=== PATIENT | female | born 1960 | race Caucasian/White ===

== ENCOUNTER 2016-10-07 10:11 | Emergency (ER) | payer OTHER ==
[2016-10-07] MEDS ORDERED: IPRATROPIUM-ALBUTEROL 3 ML NEB INHALATION STA (11:21)
--- NOTE | 2016-10-07 11:23 | ED ---
General Adult HPI - General Chief complaint: Chest Pain Stated complaint: COUGHING, CHEST CONGESTION Time Seen by Provider: 10/07/16 11:18 Source: patient, RN notes reviewed Mode of arrival: ambulatory Limitations: no limitations - History of Present Illness Initial comments: 56 yo female presents to the emergency Department chief complaint of a dry cough the right percent chest pain. Patient states about 6 weeks ago she was diagnosed with bronchitis. Patient states that that got better but now for the last week or so she's had this dry cough and pain to the right upper lung. Patient states she has mild pain when she is not bringing the when she breathes her pain is worse. Patient states that night it is worse when she is laying down. Patient states that the shortness of breath like with bronchitis is not there there is mild shortness of breath. Patient states she hasn't had any lightheadedness or dizziness has been no fever chills. Patient states that she is a smoker. Patient states she was concerned due to the continued discomfort for the last week or so so she thought that she should be evaluated.Patient denies any recent fever, chills, back pain, abdominal pain, nausea vomiting, numbness or tingling, dysuria or hematuria, constipation or diarrhea, headaches or visual changes, or any other current symptoms. - Related Data Home Medications Medication Instructions Recorded Confirmed Omeprazole [PriLOSEC] 20 mg PO DAILY PRN 11/01/15 10/07/16 Calcium/Magnesium/Potassium 1 tab PO DAILY 10/07/16 10/07/16 Multivitamins, Thera Liquid 1 oz PO DAILY 10/07/16 10/07/16 [Theragran Liquid (formulary)] Vitamin B-12 Liquid 1 ml PO DAILY 10/07/16 10/07/16 Previous Rx's Medication Instructions Recorded Albuterol Inhaler [Ventolin Hfa 1 - 2 puff INHALATION Q4-6H PRN #1 10/07/16 Inhaler] inhaler Levofloxacin [Levaquin] 750 mg PO DAILY #5 tab 10/07/16 Allergies Allergy/AdvReac Type Severity Reaction Status Date / Time No Known Allergies Allergy Verified 10/07/16 12:01 Review of Systems ROS Statement: Those systems with pertinent positive or pertinent negative responses have been documented in the HPI. ROS Other: All systems not noted in ROS Statement are negative. Past Medical History Past Medical History: GERD/Reflux Additional Past Medical History / Comment(s): VARICOSE VEINS, H PYLORI History of Any Multi-Drug Resistant Organisms: None Reported Additional Past Surgical History / Comment(s): VEIN STRIPPING RIGHT LEG, COLONOSCOPY, EGD Past Anesthesia/Blood Transfusion Reactions: No Reported Reaction Past Psychological History: No Psychological Hx Reported Smoking Status: Current every day smoker Past Alcohol Use History: Rare Additional Past Alcohol Use History / Comment(s): STARTED SMOKING AT AGE 17- SMOKES 1/2 PPD OR LESS Past Drug Use History: None Reported - Past Family History Mother Family Medical History: Deep Vein Thrombosis (DVT) General Exam - General Exam Comments Initial Comments: General: The patient is awake and alert, in no distress, and does not appear acutely ill. Eye: Pupils are equal, round and reactive to light, extra-ocular movements are intact; there is normal conjunctiva bilaterally. No signs of icterus. Ears, nose, mouth and throat: There are moist mucous membranes and no oral lesions. Neck: The neck is supple, there is no tenderness. Cardiovascular: There is a regular rate and rhythm. No murmur, rub or gallop is appreciated. Mild tenderness patient of the right upper chest wall. Respiratory: Lungs are clear to auscultation, respirations are non-labored, breath sounds are equal. No wheezes, stridor, rales, or rhonchi. Gastrointestinal: Soft, non-distended, non-tender abdomen without masses or organomegaly noted. There is no rebound or guarding present. No CVA tenderness. Bowel sounds are unremarkable. Back: There is no tenderness to palpation in the midline. There is no obvious deformity. No rashes noted. Musculoskeletal: Normal ROM, no tenderness, There is no pedal edema. There is no calf tenderness or swelling. Sensation intact. Pulses equal bilaterally 2+. Neurological: CN II-XII intact, There are no obvious motor or sensory deficits. Coordination appears grossly intact. Speech is normal. Skin: Skin is warm and dry and no rashes or lesions are noted. Psychiatric: Cooperative, appropriate mood & affect, normal judgment. Limitations: no limitations Course Vital Signs 10/07/16 10/07/16 10/07/16 10:48 11:44 11:52 Temperature 98.3 F Pulse Rate 68 84 88 Respiratory 18 Rate Blood Pressure 116/67 O2 Sat by Pulse 97 Oximetry 10/07/16 12:27 Temperature 97.4 F L Pulse Rate 68 Respiratory 18 Rate Blood Pressure 98/54 O2 Sat by Pulse 100 Oximetry Medical Decision Making - Medical Decision Making 56-year-old female presents to the emergency department with a chief complaint of cough. At this time chest x-ray is suspicious for a pneumonia. This and lab work has no white count and otherwise is reviewed and negative. This time we will start patient on antibiotics for pneumonia. We discussed. We discussed all patient's questions. She stated that she understood and is in agreement plan. She'll be discharged. - Lab Data Result diagrams: 10/07/16 11:25 10/07/16 11:25 Lab Results 10/07/16 10/07/16 10/07/16 Range/Units 11:25 11:25 11:25 WBC 5.6 (3.8-10.6) k/uL RBC 4.02 (3.80-5.40) m/uL Hgb 12.4 (11.4-16.0) gm/dL Hct 38.4 (34.0-46.0) % MCV 95.4 (80.0-100.0) fL MCH 30.8 (25.0-35.0) pg MCHC 32.2 (31.0-37.0) g/dL RDW 13.3 (11.5-15.5) % Plt Count 330 (150-450) k/uL Neutrophils % 55 % Lymphocytes % 31 % Monocytes % 7 % Eosinophils % 3 % Basophils % 1 % Neutrophils # 3.1 (1.3-7.7) k/uL Lymphocytes # 1.8 (1.0-4.8) k/uL Monocytes # 0.4 (0-1.0) k/uL Eosinophils # 0.2 (0-0.7) k/uL Basophils # 0.0 (0-0.2) k/uL PT (9.0-12.0) sec INR (<1.1) APTT (22.0-30.0) sec D-Dimer (<0.60) mg/L FEU Sodium 142 (137-145) mmol/L Potassium 4.0 (3.5-5.1) mmol/L Chloride 106 (98-107) mmol/L Carbon Dioxide 28 (22-30) mmol/L Anion Gap 8 mmol/L BUN 19 H (7-17) mg/dL Creatinine 0.54 (0.52-1.04) mg/dL Est GFR (MDRD) Af Amer >60 (>60 ml/min/1.73 sqM) Est GFR (MDRD) Non-Af >60 (>60 ml/min/1.73 sqM) Glucose 87 (74-99) mg/dL Calcium 9.2 (8.4-10.2) mg/dL Magnesium 2.2 (1.6-2.3) mg/dL Total Bilirubin 0.8 (0.2-1.3) mg/dL AST 23 (14-36) U/L ALT 22 (9-52) U/L Alkaline Phosphatase 72 (38-126) U/L Total Creatine Kinase 76 (30-135) U/L CK-MB (CK-2) 1.1 (0.0-2.4) ng/mL CK-MB (CK-2) Rel Index 1.4 Troponin I <0.012 (0.000-0.034) ng/mL Total Protein 7.5 (6.3-8.2) g/dL Albumin 3.9 (3.5-5.0) g/dL 10/07/16 Range/Units 11:25 WBC (3.8-10.6) k/uL RBC (3.80-5.40) m/uL Hgb (11.4-16.0) gm/dL Hct (34.0-46.0) % MCV (80.0-100.0) fL MCH (25.0-35.0) pg MCHC (31.0-37.0) g/dL RDW (11.5-15.5) % Plt Count (150-450) k/uL Neutrophils % % Lymphocytes % % Monocytes % % Eosinophils % % Basophils % % Neutrophils # (1.3-7.7) k/uL Lymphocytes # (1.0-4.8) k/uL Monocytes # (0-1.0) k/uL Eosinophils # (0-0.7) k/uL Basophils # (0-0.2) k/uL PT 9.9 (9.0-12.0) sec INR 1.0 (<1.1) APTT 26.5 (22.0-30.0) sec D-Dimer 0.19 (<0.60) mg/L FEU Sodium (137-145) mmol/L Potassium (3.5-5.1) mmol/L Chloride (98-107) mmol/L Carbon Dioxide (22-30) mmol/L Anion Gap mmol/L BUN (7-17) mg/dL Creatinine (0.52-1.04) mg/dL Est GFR (MDRD) Af Amer (>60 ml/min/1.73 sqM) Est GFR (MDRD) Non-Af (>60 ml/min/1.73 sqM) Glucose (74-99) mg/dL Calcium (8.4-10.2) mg/dL Magnesium (1.6-2.3) mg/dL Total Bilirubin (0.2-1.3) mg/dL AST (14-36) U/L ALT (9-52) U/L Alkaline Phosphatase (38-126) U/L Total Creatine Kinase (30-135) U/L CK-MB (CK-2) (0.0-2.4) ng/mL CK-MB (CK-2) Rel Index Troponin I (0.000-0.034) ng/mL Total Protein (6.3-8.2) g/dL Albumin (3.5-5.0) g/dL - EKG Data -: EKG Interpreted by 10/07/16 11:24 Sinus bradycardia 55 bpm, normal axis, no atopy, no S-T depressions or elevations, - Radiology Data Radiology results: report reviewed, image reviewed Disposition Clinical Impression: Right upper lobe pneumonia Disposition: HOME SELF-CARE Condition: Stable Instructions: Pneumonia (ED) Additional Instructions: Please use medication as discussed. Please follow up with family doctor if symptoms have not improved over the next two days. Please return to the emergency room if your symptoms increase or worsen or for any other concerns. Prescriptions: Albuterol Inhaler [Ventolin Hfa Inhaler] 1 - 2 puff INHALATION Q4-6H PRN #1 inhaler PRN Reason: Cough Levofloxacin [Levaquin] 750 mg PO DAILY #5 tab Referrals: Caty Mijares MD [Primary Care Provider] - 1-2 days Time of Disposition: 12:43
--- NOTE | 2016-10-07 11:48 | XR ---
EXAMINATION TYPE: XR chest 2V DATE OF EXAM: 10/07/2016 11:43 AM COMPARISON: NONE TECHNIQUE: PA and lateral views submitted. HISTORY: Chest FINDINGS: There is an area of consolidation the right upper lobe and additional area of consolidation the lingu lar segment left upper lobe on the lateral view. Follow resolution to exclude neoplasm. No pleural effusion or pneumothorax. Hypertrophic and degenerative change of the spine. IMPRESSION: 1. Area of consolidation right upper lobe suspicious for pneumonia. Correlate clinically. Follow-up t o resolution to exclude underlying neoplasm. 2. Lateral view suggest increased density overlying the cardiac border likely within the lingular seg ment left upper lobe. Correlate for pneumonia.
[2016-10-07 11:53] LABS: Basophils % (A) 1 %; CH 30.7; CHCM 32.3; Eosinophils # (A) 0.2 k/uL (0-0.7); Eosinophils % (A) 3 %; HCT 38.4 % (34.0-46.0); HDW 2.42; HGB 12.4 gm/dL (11.4-16.0); Luc # (Auto) 0.19; Luc % (Auto) 3; Lymphocytes # (A) 1.8 k/uL (1.0-4.8); Lymphocytes % (A) 31 %; MCH 30.8 pg (25.0-35.0); MCHC 32.2 g/dL (31.0-37.0); MCV 95.4 fL (80.0-100.0); Mean Platelet Volume 6.8; Monocytes # (A) 0.4 k/uL (0-1.0); Monocytes % (A) 7 %; Neutrophils # (A) 3.1 k/uL (1.3-7.7); Neutrophils % (A) 55 %; RBC 4.02 m/uL (3.80-5.40); RDW 13.3 % (11.5-15.5); WBC 5.6 k/uL (3.8-10.6); WBC (Perox) 5.42
[2016-10-07 12:00] LABS: ALT 22 U/L (9-52); AST 23 U/L (14-36); Alkaline Phosphatase 72 U/L (38-126); Anion Gap 8 mmol/L; Blood Urea Nitrogen 19 mg/dL (7-17); Calcium 9.2 mg/dL (8.4-10.2); Carbon Dioxide 28 mmol/L (22-30); Chloride 106 mmol/L (98-107); Glucose 87 mg/dL (74-99); Magnesium 2.2 mg/dL (1.6-2.3); Non-African American GFR(MDRD) >60 (>60 ml/min/1.73 sqM); Sodium 142 mmol/L (137-145); Total Bilirubin 0.8 mg/dL (0.2-1.3); Total Protein 7.5 g/dL (6.3-8.2)
[2016-10-07 12:01] LABS: Partial Thromboplastin Time 26.5 sec (22.0-30.0); Prothrombin Time 9.9 sec (9.0-12.0)
[2016-10-07 12:17] LABS: Creatine Kinase 76 U/L (30-135)
[2016-10-07 12:27] LABS: Creatine Kinase MB 1.1 ng/mL (0.0-2.4); Troponin I <0.012 ng/mL (0.000-0.034)
[2016-10-07 12:57] VITALS: BP 104/56; PULSE 62; RESP 16; TEMP 98.1
== END 2016-10-07 12:58 | disposition home or self-care (01) ==
LOC: EC 10:11
DX: J18.9 Pneumonia, unspecified organism (principal); F17.200 Nicotine dependence, unspecified, uncomplicated; Z79.899 Other long term (current) drug therapy; Z87.09 Personal history of other diseases of the respiratory system
CPT/HCPCS: 36415; 71020; 80053; 82550; 82553; 83735; 84484; 85025; 85379; 85610; 85730; 93005; 94640; 99285

== ENCOUNTER → 2016-10-07 | Outpatient (CLI) | payer OTHER ==
--- NOTE | 2016-10-08 09:41 | MM ---
Reason for exam: screening (asymptomatic). Last mammogram was performed 1 year ago. History: Patient is postmenopausal. Physical Findings: A clinical breast exam by your physician is recommended on an annual basis and results should be correlated with mammographic findings. MG Screening Mammo w CAD Bilateral CC and MLO view(s) were taken. Prior study comparison: December 23, 2012, mammogram, performed at [facility]. The breast tissue is heterogeneously dense. This may lower the sensitivity of mammography. Finding: There are typically benign round calcifications in both breasts. There is no discrete abnormality. ASSESSMENT: Benign, BI-RAD 2 RECOMMENDATION: Routine screening mammogram of both breasts in 1 year.
== END | disposition home or self-care (01) ==
LOC: RADMAMWWP 09:41
PROVIDERS: ATTEND Family Medicine
DX: Z12.31 Encounter for screening mammogram for malignant neoplasm of breast (principal)

== ENCOUNTER 2017-10-01 00:40 | Observation (INO) | payer OTHER ==
--- NOTE | 2017-10-01 00:49 | ED ---
General Adult HPI - General Chief complaint: Chest Pain Stated complaint: Chest pain Time Seen by Provider: 10/01/17 00:48 Source: patient, RN notes reviewed, old records reviewed Mode of arrival: wheelchair Limitations: no limitations - History of Present Illness Initial comments: This is a 57-year-old female to the ER for evaluation patient presents today for evaluation of chest pain. Patient does admit to increased stress in life including passing of a family member.. Patient does have left-sided chest pain. Chest pain radiates for back and up into her shoulder. Patient did taking [place] with no help, unable to sleep. Patient denies recent fever cough. Symptoms started this afternoon are progressively worsened. - Related Data Home Medications Medication Instructions Recorded Confirmed Omeprazole [PriLOSEC] 20 mg PO DAILY PRN 11/01/15 10/07/16 Calcium/Magnesium/Potassium 1 tab PO DAILY 10/07/16 10/07/16 Multivitamins, Thera Liquid 1 oz PO DAILY 10/07/16 10/07/16 [Theragran Liquid (formulary)] Vitamin B-12 Liquid 1 ml PO DAILY 10/07/16 10/07/16 Previous Rx's Medication Instructions Recorded Albuterol Inhaler [Ventolin Hfa 1 - 2 puff INHALATION Q4-6H PRN #1 10/07/16 Inhaler] inhaler Levofloxacin [Levaquin] 750 mg PO DAILY #5 tab 10/07/16 Allergies Allergy/AdvReac Type Severity Reaction Status Date / Time No Known Allergies Allergy Verified 10/07/16 12:01 Review of Systems ROS Statement: Those systems with pertinent positive or pertinent negative responses have been documented in the HPI. ROS Other: All systems not noted in ROS Statement are negative. Past Medical History Past Medical History: GERD/Reflux Additional Past Medical History / Comment(s): VARICOSE VEINS, H PYLORI History of Any Multi-Drug Resistant Organisms: None Reported Past Surgical History: Cholecystectomy Additional Past Surgical History / Comment(s): VEIN STRIPPING RIGHT LEG, COLONOSCOPY, EGD Past Anesthesia/Blood Transfusion Reactions: No Reported Reaction Past Psychological History: No Psychological Hx Reported Smoking Status: Current every day smoker Past Alcohol Use History: Rare Past Drug Use History: Marijuana - Past Family History Mother Family Medical History: Deep Vein Thrombosis (DVT) General Exam Limitations: no limitations General appearance: alert, in no apparent distress, anxious Head exam: Present: atraumatic, normocephalic, normal inspection Eye exam: Present: normal appearance, PERRL, EOMI. Absent: scleral icterus, conjunctival injection, periorbital swelling ENT exam: Present: normal exam, mucous membranes moist Neck exam: Present: normal inspection. Absent: tenderness, meningismus, lymphadenopathy Respiratory exam: Present: normal lung sounds bilaterally. Absent: respiratory distress, wheezes, rales, rhonchi, stridor Cardiovascular Exam: Present: regular rate, normal rhythm, normal heart sounds. Absent: systolic murmur, diastolic murmur, rubs, gallop, clicks GI/Abdominal exam: Present: soft, normal bowel sounds. Absent: distended, tenderness, guarding, rebound, rigid Extremities exam: Present: normal inspection, full ROM, normal capillary refill. Absent: tenderness, pedal edema, joint swelling, calf tenderness Back exam: Present: normal inspection Neurological exam: Present: alert, oriented X3, CN II-XII intact Psychiatric exam: Present: normal affect, normal mood Skin exam: Present: warm, dry, intact, normal color. Absent: rash Course Vital Signs 10/01/17 00:44 Temperature 98.6 F Pulse Rate 88 Respiratory 18 Rate Blood Pressure 96/53 O2 Sat by Pulse 92 L Oximetry - Reevaluation(s) Reevaluation #1: 10/01/17 03:15 Patient's remains of left-sided chest pain despite treatment EKG Findings - EKG Comments: EKG Findings:: EKG shows normal sinus rhythm rate of 70, ND 07/06/1939, QRS 94, QTC 427 Medical Decision Making - Medical Decision Making 57 female to the ER for evaluation of chest pain. Left-sided chest pain. Patient can be discharged home furniture patient has continued chest pain pressure [place] department stay, we'll evaluate elevated liver enzymes as well as have cardiology evaluation regarding chest pain - Lab Data Result diagrams: 10/01/17 00:57 10/01/17 00:57 Lab Results 10/01/17 10/01/17 10/01/17 Range/Units 00:57 00:57 00:57 WBC 10.3 (3.8-10.6) k/uL RBC 4.40 (3.80-5.40) m/uL Hgb 13.3 (11.4-16.0) gm/dL Hct 40.0 (34.0-46.0) % MCV 91.0 (80.0-100.0) fL MCH 30.3 (25.0-35.0) pg MCHC 33.3 (31.0-37.0) g/dL RDW 12.7 (11.5-15.5) % Plt Count 302 (150-450) k/uL Neutrophils % 79 % Lymphocytes % 12 % Monocytes % 7 % Eosinophils % 1 % Basophils % 0 % Neutrophils # 8.2 H (1.3-7.7) k/uL Lymphocytes # 1.2 (1.0-4.8) k/uL Monocytes # 0.7 (0-1.0) k/uL Eosinophils # 0.1 (0-0.7) k/uL Basophils # 0.0 (0-0.2) k/uL PT (9.0-12.0) sec INR (<1.2) APTT (22.0-30.0) sec D-Dimer (<0.60) mg/L FEU Sodium 139 (137-145) mmol/L Potassium 4.1 (3.5-5.1) mmol/L Chloride 101 (98-107) mmol/L Carbon Dioxide 27 (22-30) mmol/L Anion Gap 11 mmol/L BUN 19 H (7-17) mg/dL Creatinine 0.50 L (0.52-1.04) mg/dL Est GFR (CKD-EPI)AfAm >90 (>60 ml/min/1.73 sqM) Est GFR (CKD-EPI)NonAf >90 (>60 ml/min/1.73 sqM) Glucose 121 H (74-99) mg/dL Calcium 9.8 (8.4-10.2) mg/dL Magnesium 1.8 (1.6-2.3) mg/dL Total Bilirubin 0.9 (0.2-1.3) mg/dL AST 1240 H (14-36) U/L ALT 744 H (9-52) U/L Alkaline Phosphatase 114 (38-126) U/L Total Creatine Kinase 47 (30-135) U/L CK-MB (CK-2) 0.9 (0.0-2.4) ng/mL CK-MB (CK-2) Rel Index 1.9 Troponin I <0.012 (0.000-0.034) ng/mL Total Protein 7.5 (6.3-8.2) g/dL Albumin 4.4 (3.5-5.0) g/dL Lipase 165 (23-300) U/L Acetaminophen ug/mL 10/01/17 10/01/17 Range/Units 00:57 00:57 WBC (3.8-10.6) k/uL RBC (3.80-5.40) m/uL Hgb (11.4-16.0) gm/dL Hct (34.0-46.0) % MCV (80.0-100.0) fL MCH (25.0-35.0) pg MCHC (31.0-37.0) g/dL RDW (11.5-15.5) % Plt Count (150-450) k/uL Neutrophils % % Lymphocytes % % Monocytes % % Eosinophils % % Basophils % % Neutrophils # (1.3-7.7) k/uL Lymphocytes # (1.0-4.8) k/uL Monocytes # (0-1.0) k/uL Eosinophils # (0-0.7) k/uL Basophils # (0-0.2) k/uL PT 9.7 (9.0-12.0) sec INR 1.0 (<1.2) APTT 22.3 (22.0-30.0) sec D-Dimer 0.79 H (<0.60) mg/L FEU Sodium (137-145) mmol/L Potassium (3.5-5.1) mmol/L Chloride (98-107) mmol/L Carbon Dioxide (22-30) mmol/L Anion Gap mmol/L BUN (7-17) mg/dL Creatinine (0.52-1.04) mg/dL Est GFR (CKD-EPI)AfAm (>60 ml/min/1.73 sqM) Est GFR (CKD-EPI)NonAf (>60 ml/min/1.73 sqM) Glucose (74-99) mg/dL Calcium (8.4-10.2) mg/dL Magnesium (1.6-2.3) mg/dL Total Bilirubin (0.2-1.3) mg/dL AST (14-36) U/L ALT (9-52) U/L Alkaline Phosphatase (38-126) U/L Total Creatine Kinase (30-135) U/L CK-MB (CK-2) (0.0-2.4) ng/mL CK-MB (CK-2) Rel Index Troponin I (0.000-0.034) ng/mL Total Protein (6.3-8.2) g/dL Albumin (3.5-5.0) g/dL Lipase (23-300) U/L Acetaminophen <10.0 ug/mL - Radiology Data Radiology results: report reviewed (CT is negative), image reviewed Disposition Clinical Impression: Chest pain Disposition: ADMITTED IP TO THIS HOSP Condition: Undetermined Instructions: Chest Pain (ED) Referrals: Caty Mijares MD [Primary Care Provider] - 1-2 days
[2017-10-01 01:07] LABS: Basophils % (A) 0 %; Eosinophils # (A) 0.1 k/uL (0-0.7); Eosinophils % (A) 1 %; HGB 13.3 gm/dL (11.4-16.0); Lymphocytes # (A) 1.2 k/uL (1.0-4.8); Lymphocytes % (A) 12 %; MCH 30.3 pg (25.0-35.0); MCHC 33.3 g/dL (31.0-37.0); Mean Platelet Volume 6.9; Monocytes # (A) 0.7 k/uL (0-1.0); Monocytes % (A) 7 %; Neutrophils # (A) 8.2 k/uL (1.3-7.7); Neutrophils % (A) 79 %; Platelet Count 302 k/uL (150-450); RDW 12.7 % (11.5-15.5); WBC 10.3 k/uL (3.8-10.6)
[2017-10-01] MEDS ORDERED: MORPHINE SULFATE 4MG/4ML SYRG IVP STA (01:11)
[2017-10-01] MEDS ORDERED: RX INFO: IV CONTRAST WAS GIVEN 1 EACH MISC MISCELLANE PRN (01:11)
[2017-10-01] MEDS ORDERED: DIAZEPAM 5 MG/ML 2 ML INJ IVP STA (01:11)
--- NOTE | 2017-10-01 01:15 | XR ---
EXAMINATION TYPE: XR chest 2V DATE OF EXAM: 10/01/2017 COMPARISON: 10/07/2016 HISTORY: Chest pain TECHNIQUE: Frontal and lateral views of the chest are obtained. FINDINGS: There is a small infiltrate at the left lung base. There is no heart failure. Heart size i s normal. Mediastinum is normal. There is no pleural effusion. There are chest leads. IMPRESSION: There is a infiltrate at the left lung base that is mostly in the lingula left upper lob e that appears improved slightly compared to old exam. There is clearing of some pneumonia in the rig ht midlung compared to old exam. No heart failure.
[2017-10-01 01:16] LABS: ALT 744 U/L (9-52); Albumin 4.4 g/dL (3.5-5.0); Alkaline Phosphatase 114 U/L (38-126); Anion Gap 11 mmol/L; Blood Urea Nitrogen 19 mg/dL (7-17); Calcium 9.8 mg/dL (8.4-10.2); Carbon Dioxide 27 mmol/L (22-30); Chloride 101 mmol/L (98-107); Glucose 121 mg/dL (74-99); Lipase 165 U/L (23-300); Magnesium 1.8 mg/dL (1.6-2.3); Potassium 4.1 mmol/L (3.5-5.1); Sodium 139 mmol/L (137-145); Total Bilirubin 0.9 mg/dL (0.2-1.3); Total Protein 7.5 g/dL (6.3-8.2)
[2017-10-01] MEDS ORDERED: MORPHINE SULFATE 4MG/4ML SYRG ONE (01:17)
[2017-10-01 01:25] LABS: D-Dimer 0.79 mg/L FEU (<0.60); Partial Thromboplastin Time 22.3 sec (22.0-30.0); Prothrombin Time 9.7 sec (9.0-12.0)
[2017-10-01 01:27] LABS: AST 1240 U/L (14-36); Creatine Kinase 47 U/L (30-135)
[2017-10-01 01:40] LABS: Creatine Kinase MB 0.9 ng/mL (0.0-2.4); Troponin I <0.012 ng/mL (0.000-0.034)
--- NOTE | 2017-10-01 02:16 | CT ---
EXAMINATION TYPE: CT angio chest DATE OF EXAM: 10/01/2017 1:48 AM COMPARISON: NONE HISTORY: R/O PE, SOB, Left sided chest pain under left breast and radiates into left shoulder and thom etimes left side of her neck CT DLP: 305.60 mGycm Automated exposure control for dose reduction was used. CONTRAST: CTA scan of the thorax is performed with IV Contrast, patient injected with 80 mL of Isovue 370, pulm onary embolism protocol. There are 3-D post processed images.. FINDINGS: There is minimal reticular infiltrate at the left lung apex. There is similar change in the anterior aspect of the right upper lobe. There is groundglass interstitial infiltrate in the lower lung nagel . There is a 2.7 cm irregular infiltrate in the lingula left upper lobe. This has intermediate soft t issue density. There is no pleural effusion. Heart size is normal. There is no pericardial effusion. I see no filling defects in the pulmonary arteries. There is no evidence of aortic dissection. Ascend ing aorta measures 3.5 cm. There are a few mediastinal lymph nodes that measure up to 1 cm. I see no bony destructive process. IMPRESSION: NO EVIDENCE OF PULMONARY EMBOLISM. INTERSTITIAL PULMONARY INFILTRATES PROBABLY DUE TO FIBROSIS. THERE IS A MORE MASSLIKE INFILTRATE IN T HE [place] LEFT UPPER LOBE THAT IS PROBABLY INFLAMMATORY BUT FOLLOW-UP IS RECOMMENDED TO [facility] Garza
[2017-10-01] MEDS ORDERED: NITROGLYCERIN SL TABS 0.4 MG TAB SUBLINGUAL PRN (03:12)
[2017-10-01] MEDS ORDERED: ASPIRIN 81 MG PO STA (03:12)
[2017-10-01] MEDS ORDERED: KETOROLAC 30 MG/ML 1 ML VIAL IVP STA (03:12)
[2017-10-01] MEDS ORDERED: MORPHINE ORAL SOLN 10 MG/5 ML CUP PO PRN ×2 (03:12→22:31)
[2017-10-01 05:03] VITALS: RESP 16
[2017-10-01 05:12] VITALS: BMI 25.1
[2017-10-01 05:14] LABS: Hepatitis A AB IgM Index 0.01; Hepatitis A Antibody IgM NEGATIVE
[2017-10-01 07:46] LABS: Creatine Kinase 34 U/L (30-135)
[2017-10-01 08:01] LABS: Creatine Kinase MB 0.6 ng/mL (0.0-2.4); Troponin I <0.012 ng/mL (0.000-0.034)
[2017-10-01] MEDS: cefTRIAXone IN SWFI 1,000 MG/10 ML SYRINGE IVP SCH (08:43)
[2017-10-01] MEDS: AZITHROMYCIN 500 MG in SODIUM CHLORIDE 0.9% 250 ML IVPB SCH (08:43)
[2017-10-01] MEDS: ATORVASTATIN 80 MG TAB PO SCH ×2 (08:46→08:47)
--- NOTE | 2017-10-01 10:54 | CONS ---
CONSULTATION Meredith Fields is a 57-year-old female who is under some stress at this time on account of in the family. She started complaining of discomfort in her left axilla and in the infra-axillary region as well as the left shoulder and nape of the neck. She actually has tenderness and she feels tenderness as I examined her and auscultate her precordium, feeling the tenderness over the chest wall. She takes [place] for pain. No dizziness, lightheadedness. No palpitations. No undue shortness of breath. REVIEW OF SYSTEMS: No fever, chills, or rigors. No cough or expectoration. No nausea, vomiting, or diarrhea. No hematuria or dysuria. No strokes or seizures. No skin lesions. She does appear to have musculoskeletal complaints. PAST HISTORY: Past history of GERD, varicose veins, H pylori, vein stripping. SOCIAL HISTORY: She is a current smoker. Past history of marijuana use. FAMILY HISTORY: Family history of DVT. She has a family history of liver cirrhosis and a sister awaiting liver transplant. MEDICATIONS: Medications include Prilosec, calcium, multivitamin, and B12. PHYSICAL EXAMINATION: On examination, her blood pressure is 100/52 mmHg, pulse rate in the 70s, afebrile 98.4 degrees Fahrenheit. Head and neck examination is normal. Heart sounds S1, S2 are normal. Lungs are clear to auscultation. Extremities are warm, no edema. Her chest wall is tender anterolaterally. ECG was reviewed, ECG is normal, ST segments are normal. Labs were reviewed. Two sets of cardiac enzymes are normal. The D-dimer was mildly abnormal and the chest CTA showed interstitial pulmonary infiltrates, possibly fibrosis. There was also mass like infiltrate in the lingula in the left upper lobe, possibly inflammatory. IMPRESSION: 1. Atypical chest discomfort, likely musculoskeletal. 2. Abnormalities noted on chest CT may need to be worked up from a pulmonary standpoint. 3. Normal cardiac enzymes. SUGGEST: A 2-D echo and Doppler study to assess cardiac structure and function. If this normal then she should undergo a noncardiac workup for her pulmonary issues and chest discomfort. MMODL / IJN: [id number] /
--- NOTE | 2017-10-01 11:03 | US ---
EXAMINATION TYPE: US abdomen complete DATE OF EXAM: 10/01/2017 COMPARISON: NONE CLINICAL HISTORY: elevated liver enzymes. EXAM MEASUREMENTS: Liver Length: 15.7 cm Gallbladder Wall: Surgically absent CBD: 0.7 cm Spleen: 11.1 cm Right Kidney: 11.1 x 4.1 x 5.2 cm Left Kidney: 10.6 x 6.0 x 5.0 cm Patient having a lot of pain, unable to hold her breath making exam technically difficult and limitin g visualization of organs. Pancreas: prominent duct, limited evaluation, tail not seen Liver: wnl, ?intrahepatic duct dilatation, portions visualization wnl Gallbladder: Surgically absent Evidence for sonographic Ladd's sign: no CBD: wnl for cholecystectomy Spleen: wnl Right Kidney: Inferior pole obscured by bowel gas Left Kidney: portions of inferior and superior pole obscured by bowel gas Upper IVC: wnl Abd Aorta: Atherosclerotic changes are noted. IMPRESSION: 1. Limited assessment of the pancreas. Liver is somewhat heterogeneous in appearance can be seen with fatty infiltration, hepatitis or diffuse hepatocellular disease. Correlate clinically. 2. Postcholecystectomy. There is mild intrahepatic biliary dilation which likely is related to postch olecystectomy changes.
[2017-10-01] MEDS: methylPREDNISolone 4 MG TAB TAPER PO SCH (11:20)
--- NOTE | 2017-10-01 14:13 | P.CNPUL ---
History of Present Illness Consult date: 10/01/17 Requesting physician: John Claudio Reason for consult: dyspnea, cough, chest pain Chief complaint: Chest pain History of present illness: This is a 57-year-old female with no major medical illnesses, except for the fact that the patient has strong family history of unknown liver disease, one of her sisters required a liver transplant. However the patient did not know the exact nature of the liver disease affecting multiple family members. Patient came in yesterday with a few days' history of left sided chest pain described over the area just below the left breast, radiating to the left axilla and in the left shoulder as well as neck. Patient also had some cough, nonproductive, minimal shortness of breath, no fever no chills, no hemoptysis. No nausea no vomiting no abdominal pain. Workup in the ER included CT angiogram of the chest, showed a masslike infiltrate in the lingula felt to be inflammatory in nature unless proven otherwise. There was also a minimal reticular infiltrate in the left lung apex. And anterior aspect of the right upper lobe with ground glass interstitial infiltrate in the lower lung nagel. The abnormality in the lingula was noted to be 2.7 cm, irregular. No filling defects were noted, no evidence of pulmonary embolism was noted. No significant lymphadenopathy was noted. Chest x-ray showed similar findings especially in the left lung base. Relating to the lingular findings on the CT of the chest. CBC was noted to be normal. Basic metabolic profile was normal. Renal profile was normal. However liver enzymes showed AST of 1240, and ALT of 744. Patient is not aware of having any history of liver disease herself, she does not drink any alcohol, and she is not taking any hepatotoxic drugs. Her acetaminophen level on admission was less than 10. Ultrasound of the abdomen was done, it showed some abnormal findings on the liver suggestive of possible hepatocellular disease, GI consultation for liver evaluation is pending. Patient is now on antibiotics in the form of Rocephin and Zithromax for community-acquired pneumonia, I added Medrol Dosepak for her pleuritic pain. Review of Systems 14 point review of systems were obtained, please refer to pertinent positives in HPI otherwise remaining systems are negative. Past Medical History Past Medical History: GERD/Reflux Additional Past Medical History / Comment(s): VARICOSE VEINS, H PYLORI History of Any Multi-Drug Resistant Organisms: None Reported Past Surgical History: Cholecystectomy Additional Past Surgical History / Comment(s): VEIN STRIPPING RIGHT LEG X2, COLONOSCOPY, EGD Past Anesthesia/Blood Transfusion Reactions: No Reported Reaction Smoking Status: Current every day smoker - Past Family History Mother Family Medical History: Deep Vein Thrombosis (DVT) Additional Family Medical History / Comment(s): heart issues Father Family Medical History: CVA/TIA, Diabetes Mellitus Additional Family Medical History / Comment(s): liver issues Medications and Allergies Home Medications Medication Instructions Recorded Confirmed Type Omeprazole [PriLOSEC] 20 mg PO BID 11/01/15 10/01/17 History Calcium/Magnesium/Potassium 1 tab PO DAILY 10/07/16 10/01/17 History Multivitamins, Thera Liquid 1 oz PO DAILY 10/07/16 10/01/17 History [Theragran Liquid (formulary)] Vitamin B-12 Liquid 1 ml PO DAILY 10/07/16 10/01/17 History Albuterol Inhaler [Ventolin Hfa 1 - 2 puff INHALATION RT-Q4H PRN 10/01/17 History Inhaler] Biotin 10 mg PO DAILY 10/01/17 10/01/17 History Milk Thistle 150 mg PO DAILY 10/01/17 10/01/17 History Allergies Allergy/AdvReac Type Severity Reaction Status Date / Time No Known Allergies Allergy Verified 10/01/17 09:02 Physical Exam Vitals: Vital Signs Temp Pulse Pulse Resp BP BP Pulse Ox 10/01/17 11:44 73 16 107/56 10/01/17 07:28 98.4 F 77 16 101/59 95 10/01/17 05:24 16 10/01/17 05:02 98.4 F 73 16 100/52 95 10/01/17 04:00 82 18 94/53 96 10/01/17 00:44 98.6 F 88 18 96/53 92 L Intake and Output 09/30/17 10/01/17 10/01/17 22:59 06:59 14:59 Intake Total 236 Balance 236 Intake: Oral 236 Other: # Voids 1 Weight 77.1 kg Physical Exam: Revealed a 57-year-old female in no distress. Head: Atraumatic, normocephalic. Eyes: PERRLA, EOMI, no icterus. HEENT:[ Dry mucous membranes, Neck is supple.] [No neck masses.] [No thyromegaly.] [No JVD.] No cervical lymphadenopathy. Chest: [Clear throughout, no crackles, no rhonchi, no wheezes.] Minimal tenderness in the left chest wall area. Cardiac Exam: [Normal S1 and S2, no S3 gallop, no murmur.] Abdomen: [Soft, nontender, no megaly, no rebound, no guarding, normal bowel sounds.] Extremities: [No clubbing, no edema, no cyanosis.] Neurological Exam: [No focal neurologic deficit.] Psychiatric: Normal mood affect and mental status examination. Lymphatics: No lymphadenopathy. Results - Laboratory Findings CBC and BMP: 10/01/17 00:57 10/01/17 00:57 PT/INR, D-dimer PT 9.7 sec (9.0-12.0) 10/01/17 00:57 INR 1.0 (<1.2) 10/01/17 00:57 D-Dimer 0.79 mg/L FEU (<0.60) H 10/01/17 00:57 Abnormal lab findings: Abnormal Labs 10/01/17 10/01/17 10/01/17 00:57 00:57 00:57 Neutrophils # 8.2 H D-Dimer 0.79 H BUN 19 H Creatinine 0.50 L Glucose 121 H AST 1240 H ALT 744 H - Diagnostic Findings Chest x-ray: image reviewed CT scan - chest: image reviewed (As noted in HPI.) Assessment and Plan Assessment: Impression: 1 Acute limited lingular infiltrate/pneumonia, community-acquired, with symptoms of pleurisy. 2 acute pleurisy secondary to pneumonia involving the lingula. 3 abnormal liver enzymes with strong family history of hereditary liver disease , exact nature is unknown to the patient, hence we will initiate a GI consultation. 4 history of tobacco dependence, patient was counseled, she normally smokes about 4 cigarettes per day. Recommendation: Continue present antibiotics including Rocephin and Zithromax, added Medrol Dosepak for her pleuritic pain, consider discharge planning in the next 24 hours, will definitely need close follow-up on outpatient basis until the abnormality in the left lung is resolved. GI to evaluate her abnormal liver enzymes. We'll continue to follow. Time with Patient: Greater than 30
--- NOTE | 2017-10-01 15:27 | P.HPIM ---
History of Present Illness H&P Date: 10/01/17 Chief Complaint: Chest pain This is a 57-year-old female with no significant past medical history who presented to the emergency room with chest pain. Patient said that her pain started all of a sudden mostly in the left chest below her left breast and was radiating to her left shoulder and neck. She described the pain as aching and 7 out of 10 in severity. There was no nausea or vomiting, no shortness of breath, and no diaphoresis. Patient was evaluated in the emergency room in 12 leads EKG showed no acute ischemic changes. Initial troponin was negative. Patient had a d-dimer that CT angiogram showed no evidence of PE. Other findings on CT included suspected underlying pulmonary fibrosis with a masslike lesion/infiltrate noted in the lingula. Patient herself denies any fevers or chills. No productive cough. On her lab work, she was noted to have significant transaminitis. Patient herself denies alcohol use. Acetaminophen level was normal. No known underlying lung disease. She reported that her sister had history of alpha-1 anti-trypsin deficiency status post liver transplant. Patient is currently placed on observation and was evaluated by multiple specialists. Review of Systems Review of system: 14 points review of systems were obtained and were negative except to what were mentioned in the HPI. Past Medical History Past Medical History: GERD/Reflux Additional Past Medical History / Comment(s): VARICOSE VEINS, H PYLORI History of Any Multi-Drug Resistant Organisms: None Reported Past Surgical History: Cholecystectomy Additional Past Surgical History / Comment(s): VEIN STRIPPING RIGHT LEG X2, COLONOSCOPY, EGD Past Anesthesia/Blood Transfusion Reactions: No Reported Reaction Smoking Status: Current every day smoker - Past Family History Mother Family Medical History: Deep Vein Thrombosis (DVT) Additional Family Medical History / Comment(s): heart issues Father Family Medical History: CVA/TIA, Diabetes Mellitus Additional Family Medical History / Comment(s): liver issues Medications and Allergies Home Medications Medication Instructions Recorded Confirmed Type Omeprazole [PriLOSEC] 20 mg PO BID 11/01/15 10/01/17 History Calcium/Magnesium/Potassium 1 tab PO DAILY 10/07/16 10/01/17 History Multivitamins, Thera Liquid 1 oz PO DAILY 10/07/16 10/01/17 History [Theragran Liquid (formulary)] Vitamin B-12 Liquid 1 ml PO DAILY 10/07/16 10/01/17 History Albuterol Inhaler [Ventolin Hfa 1 - 2 puff INHALATION RT-Q4H PRN 10/01/17 History Inhaler] Biotin 10 mg PO DAILY 10/01/17 10/01/17 History Milk Thistle 150 mg PO DAILY 10/01/17 10/01/17 History Allergies Allergy/AdvReac Type Severity Reaction Status Date / Time No Known Allergies Allergy Verified 10/01/17 09:02 Physical Exam Vitals: Vital Signs Temp Pulse Pulse Resp BP BP Pulse Ox 10/01/17 11:44 73 16 107/56 10/01/17 07:28 98.4 F 77 16 101/59 95 10/01/17 05:24 16 10/01/17 05:02 98.4 F 73 16 100/52 95 10/01/17 04:00 82 18 94/53 96 10/01/17 00:44 98.6 F 88 18 96/53 92 L Intake and Output 10/01/17 10/01/17 10/01/17 06:59 14:59 22:59 Intake Total 726 Balance 726 Intake: Intake, IV Titration 250 Amount Azithromycin 500 mg In 250 Sodium Chloride 0.9% 250 ml @ 125 mls/hr IVPB DAILY [facility] Rx#:[id number] Oral 476 Other: # Voids 1 2 Weight 77.1 kg General: The patient is awake and alert, in no distress Eye: there is normal conjunctiva bilaterally. Neck: The neck is supple, there is no JVD. Cardiovascular: Normal S1-S2, no S3-S4, no murmurs. Respiratory: Lungs clear to auscultation bilaterally Gastrointestinal: Abdomen is soft, nontender Musculoskeletal: There is no pedal edema. Neurological:. Speech is normal. Skin: Skin is warm and dry Results CBC & Chem 7: 10/01/17 00:57 10/01/17 00:57 Labs: Abnormal Lab Results - Last 24 Hours (Table) 10/01/17 10/01/17 10/01/17 Range/Units 00:57 00:57 00:57 Neutrophils # 8.2 H (1.3-7.7) k/uL D-Dimer 0.79 H (<0.60) mg/L FEU BUN 19 H (7-17) mg/dL Creatinine 0.50 L (0.52-1.04) mg/dL Glucose 121 H (74-99) mg/dL AST 1240 H (14-36) U/L ALT 744 H (9-52) U/L Thrombosis Risk Factor Assmnt - Choose All That Apply Each Factor Represents 1 point: Age 41-60 years Thrombosis Risk Factor Assessment Total Risk Factor Score: 1 Thrombosis Risk Factor Assessment Level: Low Risk Assessment and Plan Assessment: 1. Chest pain, mostly atypical in nature probably musculoskeletal. Twelve- lead EKG showed no acute ischemic changes. Troponin was normal. Echocardiogram ordered and pending. Patient was seen and evaluated by cardiology. No further testing is recommended. 2. Suspected underlying fibrosis: Noted on computed tomography scan of the chest with interstitial pulmonary infiltrate throughout both lung nagel 3. Suspected community-acquired pneumonia involving the lingula: With what appeared like a masslike infiltrate on computed tomography scan of the chest. Clinically patient is not acting like a pneumonia but she would be treated for community-acquired pneumonia for 7 days and then reevaluate. Patient was seen and evaluated by pulmonology. Appreciate recommendations. 4. Acute hepatitis: With significant transaminitis on liver function test. Exact etiology unclear. Patient denies alcohol use. Acetaminophen level normal. Not on statin at home. Patient was seen and evaluated by GI. Hepatitis A screen was negative. Ultrasound showed heterogeneous appearance of the liver of unclear significance probably represent hepatitis. GI following closely. Patient had a history of alpha-1 antitrypsin deficiency in her family.
[2017-10-01] MEDS ORDERED: IPRATROPIUM-ALBUTEROL 3 ML NEB INHALATION PRN (15:28)
[2017-10-01] MEDS ORDERED: PANTOPRAZOLE 40 MG TABLET PO STA (15:30)
[2017-10-01 16:26] LABS: Appearance,Urine Clear (Clear); Bilirubin,Urine Negative (Negative); Blood,Urine Negative (Negative); Color,Urine Light Yellow; Glucose,Urine (UA) Negative (Negative); Ketones,Urine Negative (Negative); Leukocyte Esterase,Urine Negative (Negative); Nitrite,Urine Negative (Negative); Protein,Urine Negative (Negative); Specific Gravity,Urine 1.005 (1.001-1.035); Urobilinogen,Urine <2.0 mg/dL (<2.0)
[2017-10-01 20:48] LABS: Hepatitis A Antibody IgM Non-Reactive (Non-Reactive); Hepatitis B Core IgM Non-Reactive (Non-Reactive)
[2017-10-01] MEDS ORDERED: ALPRAZolam 0.25 MG TAB PO PRN (22:31)
--- NOTE | 2017-10-01 23:27 | CONS ---
CONSULTATION DATE OF DICTATION: October 01, 2017. REQUESTING PHYSICIAN: Dr. Grewal. REASON FOR CONSULTATION: Chest pain and elevated LFTs. HISTORY OF PRESENT ILLNESS: The patient is a 57 -year-old pleasant white female, admitted to the hospital with acute onset of left sided chest pain, mostly the left axillary area along the left breast, radiating to the left shoulder for the last 2 days duration. She was admitted to the observation unit and she had workup done including an EKG and troponins have been negative. In the meantime, while in the hospital, she was noted to have elevated LFTs. Hence we are consulted . The patient denies right sided . She does not have any history of chronic liver disease in the past. She states that she was her sister and her maternal aunt deficiency and one of them had liver transplant and a sister a liver transplant and she currently lives in [place]. The patient states that she had her liver LFTs done periodically on several different occasions over the last few years and they have always been within normal limits. She denies any recent antibiotic use. Denies any new medications . PAST MEDICAL HISTORY: Significant for GERD, . MEDICATIONS: Potassium, multivitamin, Vitamin B12, Biotin, . ALLERGIES: No known drug allergies. SOCIAL HISTORY: No smoking. She denies any alcohol use. FAMILY HISTORY: Unremarkable. PAST SURGICAL HISTORY: Cholecystectomy, trypsin deficiency causing liver disease in sister and in maternal aunt. REVIEW OF SYSTEMS: Cardiopulmonary: No chest pain. No shortness of breath. No palpitations. Genitourinary: No dysuria or hematuria. Musculoskeletal: Unremarkable. Skin: Unremarkable. Endocrine: Unremarkable. Psychiatric: Unremarkable. Neurological: Unremarkable. ENT/Vision: Unremarkable. Constitutional: No weight loss or fever or chills, night sweats. EXAMINATION: She appears comfortable, no apparent distress. Vital signs stable. Blood pressure is 130/56, pulse is 73, temperature 98. HEENT examination: Unremarkable. Conjunctivae pink. Sclerae anicteric. Oral cavity no lesions. Neck: No jugular venous distention or lymph node enlargement. Chest was clear to auscultation. HEART: Regular rate and rhythm. ABDOMEN: Soft. Bowel sounds are positive. No organomegaly. Extremities: No edema. . LABORATORY DATA: WBC 10.3, hemoglobin 10.3, platelets are normal. Basic metabolic panel is within normal limits. AST is 1240, ALT 744, alkaline phosphatase normal. T-bilirubin normal. Lipase is normal. Hepatitis A IgM is negative. Acetaminophen level less than 10. IMPRESSION: The patient presents to the hospital with left-sided chest pain and for the last 2 days duration, noted to have acute elevation of serum transaminases consistent with acute hepatitis. No prior history of pancreatic disease in the past. She does have family history of alpha-1 antitrypsin deficiency. The patient had labs on an outpatient basis and LFT have always been within normal limits according to the patient's recollection. Last labs in March of . Etiology of acute hepatitis A unclear and this needs to be investigated. Hepatitis A antibody was negative. RECOMMENDATIONS: We will repeat labs in the morning and B as well as A at the present time. We will also obtain an alpha-1 antitrypsin level as well as antibody. If lipids improving tomorrow, she will be discharged home with outpatient follow up. MMALYSSIAL / POOJAN: [id number] /
[2017-10-02 06:03] LABS: Basophils % (A) 0 %; Eosinophils % (A) 1 %; HCT 37.3 % (34.0-46.0); HGB 12.2 gm/dL (11.4-16.0); Lymphocytes # (A) 1.6 k/uL (1.0-4.8); Lymphocytes % (A) 21 %; MCH 30.2 pg (25.0-35.0); MCHC 32.7 g/dL (31.0-37.0); MCV 92.4 fL (80.0-100.0); Mean Platelet Volume 7.2; Monocytes # (A) 0.4 k/uL (0-1.0); Monocytes % (A) 6 %; Neutrophils # (A) 5.5 k/uL (1.3-7.7); Neutrophils % (A) 71 %; Platelet Count 247 k/uL (150-450); RBC 4.04 m/uL (3.80-5.40); WBC 7.7 k/uL (3.8-10.6)
[2017-10-02 06:22] LABS: ALT 732 U/L (9-52); AST 490 U/L (14-36); Albumin 3.7 g/dL (3.5-5.0); Alkaline Phosphatase 150 U/L (38-126); Anion Gap 9 mmol/L; Blood Urea Nitrogen 16 mg/dL (7-17); Calcium 9.4 mg/dL (8.4-10.2); Carbon Dioxide 27 mmol/L (22-30); Chloride 106 mmol/L (98-107); Cholesterol 164 mg/dL (<200); Glucose 102 mg/dL (74-99); HDL Cholesterol 95 mg/dL (40-60); LDL Cholesterol,Calculated 63 mg/dL (0-99); Sodium 142 mmol/L (137-145); Total Bilirubin 0.9 mg/dL (0.2-1.3); Total Protein 6.6 g/dL (6.3-8.2); Triglycerides 31 mg/dL (<150)
[2017-10-02] MEDS ORDERED: PANTOPRAZOLE 40 MG TABLET PO SCH (07:30)
[2017-10-02] MEDS: cefTRIAXone IN SWFI 1,000 MG/10 ML SYRINGE IVP SCH (07:36)
[2017-10-02] MEDS: methylPREDNISolone 4 MG TAB TAPER PO SCH (07:36)
--- NOTE | 2017-10-02 08:11 | ECHOF ---
Referral Reason:cp MEASUREMENTS -------- HEIGHT: 175.3 cm WEIGHT: 76.7 kg BP: 101/59 RVIDd: 3.3 cm (< 3.3) IVSd: 1.2 cm (0.6 - 1.1) LVIDd: 4.2 cm (3.9 - 5.3) LVPWd: 1.1 cm (0.6 - 1.1) IVSs: 1.6 cm LVIDs: 2.5 cm LVPWs: 1.7 cm LA Diam: 3.4 cm (2.7 - 3.8) LAESV Index (A-L): 26.85 ml/m Ao Diam: 3.1 cm (2.0 - 3.7) AV Cusp: 2.6 cm (1.5 - 2.6) MV EXCURSION: 17.310 mm (> 18.000) MV EF SLOPE: 117 mm/s (70 - 150) EPSS: 0.3 cm MV E Patrick: 0.91 m/s MV DecT: 207 ms MV A Patrick: 0.94 m/s MV E/A Ratio: 0.97 RAP: 5.00 mmHg RVSP: 26.68 mmHg FINDINGS -------- Sinus rhythm. This was a technically good study. The left ventricular size is normal. There is borderline concentric left ventricular hypertrophy. Overall left ventricular systolic function is normal with, an EF between 55 - 60 %. The right ventricle is mildly enlarged. The left atrial size is normal. The right atrial size is normal. The aortic valve is trileaflet and appears structurally normal. The mitral valve is normal. Mild tricuspid regurgitation present. Right ventricular systolic pressure is normal at < 35 mmHg. There is no pulmonic regurgitation present. The aortic root size is normal. Normal inferior vena cava with normal inspiratory collapse consistent with estimated right atrial pre ssure of 5 mmHg. The inferior vena cava is mildly dilated. There is no pericardial effusion. CONCLUSIONS -------- 1. Sinus rhythm. 2. This was a technically good study. 3. The left ventricular size is normal. 4. There is borderline concentric left ventricular hypertrophy. 5. Overall left ventricular systolic function is normal with, an EF between 55 - 60 %. 6. The right ventricle is mildly enlarged. 7. The left atrial size is normal. 8. The right atrial size is normal. 9. The aortic valve is trileaflet and appears structurally normal. 10. The mitral valve is normal. 11. Mild tricuspid regurgitation present. 12. Right ventricular systolic pressure is normal at < 35 mmHg. 13. There is no pulmonic regurgitation present. 14. The aortic root size is normal. 15. Normal inferior vena cava with normal inspiratory collapse consistent with estimated right atrial pressure of 5 mmHg. 16. The inferior vena cava is mildly dilated. 17. There is no pericardial effusion. MAJOR ASSEMBLY INSPECTOR: Debbie Rinaldi RDCS
[2017-10-02] MEDS: AZITHROMYCIN 500 MG in SODIUM CHLORIDE 0.9% 250 ML IVPB SCH (08:53)
[2017-10-02] MEDS ORDERED: ASPIRIN 325 MG TAB PO SCH (09:00)
--- NOTE | 2017-10-02 11:35 | P.PN ---
Subjective Progress Note Date: 10/02/17 Principal diagnosis: Acute Left lower lobe pneumonia and pleurisy. This is a 57-year-old female with no major medical illnesses, except for the fact that the patient has strong family history of unknown liver disease, one of her sisters required a liver transplant. However the patient did not know the exact nature of the liver disease affecting multiple family members. Patient came in yesterday with a few days' history of left sided chest pain described over the area just below the left breast, radiating to the left axilla and in the left shoulder as well as neck. Patient also had some cough, nonproductive, minimal shortness of breath, no fever no chills, no hemoptysis. No nausea no vomiting no abdominal pain. Workup in the ER included CT angiogram of the chest, showed a masslike infiltrate in the lingula felt to be inflammatory in nature unless proven otherwise. There was also a minimal reticular infiltrate in the left lung apex. And anterior aspect of the right upper lobe with ground glass interstitial infiltrate in the lower lung nagel. The abnormality in the lingula was noted to be 2.7 cm, irregular. No filling defects were noted, no evidence of pulmonary embolism was noted. No significant lymphadenopathy was noted. Chest x-ray showed similar findings especially in the left lung base. Relating to the lingular findings on the CT of the chest. CBC was noted to be normal. Basic metabolic profile was normal. Renal profile was normal. However liver enzymes showed AST of 1240, and ALT of 744. Patient is not aware of having any history of liver disease herself, she does not drink any alcohol, and she is not taking any hepatotoxic drugs. Her acetaminophen level on admission was less than 10. Ultrasound of the abdomen was done, it showed some abnormal findings on the liver suggestive of possible hepatocellular disease, GI consultation for liver evaluation is pending. Patient is now on antibiotics in the form of Rocephin and Zithromax for community-acquired pneumonia, I added Medrol Dosepak for her pleuritic pain. Patient was reevaluated today on 10/02/2017, feeling much better, breathing a lot easier, her chest pain has completely resolved. And no more pleurisy. Her liver enzymes are improving but way far from being normal. She was seen by the watch and clock maker and repairer, and workup for abnormal liver enzymes was initiated including an alpha-1 antitrypsin level. Patient is doing well overall. And significantly improved compared to yesterday. CBC was noted to be normal basic metabolic profile is normal renal is profile is normal and liver enzymes were noted again improved compared to yesterday Objective - Vital Signs Vital signs: Vital Signs Temp 97.7 F 10/02/17 07:30 Pulse 62 10/02/17 09:31 Resp 16 10/02/17 08:00 BP 117/58 10/02/17 07:30 Pulse Ox 93 L 10/02/17 07:30 Intake & Output 10/01/17 10/02/17 10/02/17 18:59 06:59 18:59 Intake Total 726 Balance 726 Intake: Intake, IV Titration 250 Amount Azithromycin 500 mg In 250 Sodium Chloride 0.9% 250 ml @ 125 mls/hr IVPB DAILY [facility] Rx#:[id number] Oral 476 Other: Voiding Method Toilet Toilet # Voids 2 1 - Exam Physical Exam: Revealed a 57-year-old female in no distress. Head: Atraumatic, normocephalic. Eyes: PERRLA, EOMI, no icterus. HEENT:[ Dry mucous membranes, Neck is supple.] [No neck masses.] [No thyromegaly.] [No JVD.] No cervical lymphadenopathy. Chest: [Clear throughout, no crackles, no rhonchi, no wheezes.] No more tenderness noted. Cardiac Exam: [Normal S1 and S2, no S3 gallop, no murmur.] Abdomen: [Soft, nontender, no megaly, no rebound, no guarding, normal bowel sounds.] Extremities: [No clubbing, no edema, no cyanosis.] Neurological Exam: [No focal neurologic deficit.] Psychiatric: Normal mood affect and mental status examination. Lymphatics: No lymphadenopathy. - Labs CBC & Chem 7: 10/02/17 05:26 10/02/17 05:26 Labs: Abnormal Lab Results - Last 24 Hours (Table) 10/02/17 Range/Units 05:26 Creatinine 0.50 L (0.52-1.04) mg/dL Glucose 102 H (74-99) mg/dL AST 490 H (14-36) U/L ALT 732 H (9-52) U/L Alkaline Phosphatase 150 H (38-126) U/L HDL Cholesterol 95 H (40-60) mg/dL Assessment and Plan Assessment: Impression: 1 Acute limited lingular infiltrate/pneumonia, community-acquired, with symptoms of pleurisy. 2 acute pleurisy secondary to pneumonia involving the lingula. 3 abnormal liver enzymes with strong family history of hereditary liver disease , exact nature is unknown to the patient, hence we will initiate a GI consultation. 4 history of tobacco dependence, patient was counseled, she normally smokes about 4 cigarettes per day. Recommendation: Consider switching patient to oral Zithromax and Ceftin, discharge the patient home today, continue Medrol Dosepak orally, and patient could be seen in my office within a week. Cleared for discharge today. Patient is to follow-up with Dr. Allan regarding her abnormal liver enzymes. Time with Patient: Less than 30
[2017-10-02 11:52] VITALS: BP 113/66; PULSE 70; TEMP 97.9
[2017-10-02 12:19] LABS: Protein, Total 6.5 g/dL (6.2-8.2)
--- NOTE | 2017-10-02 13:07 | P.DS ---
Providers Date of admission: 10/01/17 03:12 Expected date of discharge: 10/02/17 Attending physician: John Claudio Consults: 10/01/17 03:12 Consult Physician Routine Consulting Provider: Richard Galvez Consult Reason/Comments: transaminitis Do you want consulting provider notified?: Yes Consult Physician Urgent Consulting Provider: Wendy Rayo Consult Reason/Comments: cp Do you want consulting provider notified?: Yes 10/01/17 07:24 Consult Physician Routine Consulting Provider: Dayana Alcantara Consult Reason/Comments: pneumonia Do you want consulting provider notified?: Yes 10/01/17 09:53 Consult Physician Routine Consulting Provider: Richard Galvez Consult Reason/Comments: elevated liver enzymes Do you want consulting provider notified?: Yes Primary care physician: Caty Mijares [facility] Course: 1. Chest pain, mostly atypical in nature probably musculoskeletal. Twelve- lead EKG showed no acute ischemic changes. Troponin was normal. Echocardiogram ordered and pending. Patient was seen and evaluated by cardiology. No further testing is recommended. 2. Suspected underlying fibrosis: Noted on computed tomography scan of the chest with interstitial pulmonary infiltrate throughout both lung nagel 3. Suspected community-acquired pneumonia involving the lingula: With what appeared like a masslike infiltrate on computed tomography scan of the chest. Clinically patient is not acting like a pneumonia but she would be treated for community-acquired pneumonia for 7 days and then reevaluate. Patient was seen and evaluated by pulmonology. Appreciate recommendations. 4. Acute hepatitis: With significant transaminitis on liver function test. Repeat lab work showed improvement in her AST/ALT but not back to normal range yet. Exact etiology unclear. Patient denies alcohol use. Acetaminophen level normal. Not on statin at home. Patient was seen and evaluated by GI. Viral Hepatitis screen was negative. Ultrasound showed heterogeneous appearance of the liver of unclear significance probably represent hepatitis. Patient had a history of alpha-1 antitrypsin deficiency in her family. Lab work drawn and pending. Plan to follow-up with GI and pulmonology in the office in one week. Patient Condition at Discharge: Undetermined Plan - Discharge Summary New Discharge Prescriptions: New Levofloxacin [Levaquin] 500 mg PO DAILY #5 tab methylPREDNISolone Dose Pack [Medrol Dose Pack] 4 mg PO DIRECTED #21 package Continue RX: Omeprazole [PriLOSEC] 20 mg PO BID RX: Multivitamins, Thera Liquid [Theragran Liquid (formulary)] 1 oz PO DAILY Calcium/Magnesium/Potassium 1 tab PO DAILY Vitamin B-12 Liquid 1 ml PO DAILY RX: Biotin 10 mg PO DAILY RX: Milk Thistle 150 mg PO DAILY RX: Albuterol Inhaler [Ventolin Hfa Inhaler] 1 - 2 puff INHALATION RT-Q4H PRN PRN Reason: Cough Discharge Medication List Omeprazole [PriLOSEC] 20 mg PO BID 11/01/15 [History] Calcium/Magnesium/Potassium 1 tab PO DAILY 10/07/16 [History] Multivitamins, Thera Liquid [Theragran Liquid (formulary)] 1 oz PO DAILY [History] Vitamin B-12 Liquid 1 ml PO DAILY 10/07/16 [History] Albuterol Inhaler [Ventolin Hfa Inhaler] 1 - 2 puff INHALATION RT-Q4H PRN [History] Biotin 10 mg PO DAILY 10/01/17 [History] Milk Thistle 150 mg PO DAILY 10/01/17 [History] Levofloxacin [Levaquin] 500 mg PO DAILY #5 tab 10/02/17 [Rx] methylPREDNISolone Dose Pack [Medrol Dose Pack] 4 mg PO DIRECTED #21 package 10/02/17 [Rx] Follow up Appointment(s)/Referral(s): Caty Mijares MD [Primary Care Provider] - 1-2 days Chery Quevedo MD [STAFF PHYSICIAN] - 1 Week Dayana Alcantara MD [STAFF PHYSICIAN] - 1 Week Patient Instructions/Handouts: Chest Pain (ED) Discharge Disposition: HOME SELF-CARE
--- NOTE | 2017-10-02 14:28 | PN ---
PROGRESS NOTE DATE OF SERVICE: 10/02/2017 REQUESTING PHYSICIAN: Dr. Crisostomo. Patient is a 57-year-old pleasant white female admitted to the hospital with left-sided chest pain and axillary pain. While in the hospital, was noted to have acute elevation of serum transaminases and a she denies any abdominal pain, reports no nausea, vomiting. Overall, she is feeling better from yesterday showed an AST and ALT of 12. 40 and 724 respectively. This morning repeat labs show an AST of 190 and ALT is 72, alkaline phosphatase 115.9, and T bilirubin is 0.9. Hepatitis serologies for A, B, and C were negative. She denies any symptoms today. PHYSICAL EXAMINATION: Appears comfortable no apparent distress vital signs is stable. Blood pressure is a 113/66, pulse rate 70, temperature 97.9 HEENT examination unremarkable consulting sclerae anicteric. Oral cavity, the auscultation. HEART: Regular rate and rhythm. ABDOMEN: Soft. Bowel sounds are positive. No organomegaly extremities no pedal edema skin no rashes. NEUROLOGIC: Alert and oriented x3. No focal deficits. LAB: From today AST is down to 490, ALT is 732, T bilirubin and alkaline phosphatase are normal. Hepatitis serologies for A, B, and C negative. IMPRESSION: Acute elevation of serum transaminases consistent with acute hepatitis. Hepatitis serologies for A, B, and C were negative. Etiology of acute elevation of serum transaminases remains unclear. Workup is still in progress. The patient does have family history of alpha-1 antitrypsin deficiency in a sister and maternal aunt. She is status post gallbladder surgery 2 years ago for chronic cholecystitis with no gallstones. Hence, I doubt that we are dealing with any biliary pathology at the present time. RECOMMENDATIONS: Since the transaminases have improved, suggest to the patient that she can be discharged home with an outpatient follow up in a week. Thank you for this consultation. MMODL / IJN: [id number] /
[2017-10-03] MEDS ORDERED: AZITHROMYCIN 500 MG TAB PO SCH (09:00)
[2017-10-06 10:38] LABS: Albumin 3.84 g/dL (3.80-4.90); Gamma Globulin 1.04 g/dL (0.70-1.50)
== END 2017-10-02 13:35 | disposition home or self-care (01) ==
LOC: EC 00:40 → 3OBS 03:12
PROVIDERS: ADMIT Internal Medicine; ATTEND Internal Medicine
DX: R07.89 Other chest pain (principal); B17.9 Acute viral hepatitis, unspecified; R74.0 Nonspecific elevation of levels of transaminase and lactic acid dehydrogenase [LDH]; R79.89 Other specified abnormal findings of blood chemistry; R09.1 Pleurisy; K21.9 Gastro-esophageal reflux disease without esophagitis; F17.210 Nicotine dependence, cigarettes, uncomplicated; I83.90 Asymptomatic varicose veins of unspecified lower extremity; Z79.899 Other long term (current) drug therapy; Z82.49 Family history of ischemic heart disease and other diseases of the circulatory system; Z83.3 Family history of diabetes mellitus; Z82.3 Family history of stroke; Z63.4 Disappearance and death of family member
CPT/HCPCS: 99285; 96375 ×5; 96365; 96366 ×2; 96376; 36415; 94640; 93005; 93306; 85379; 80061; 80053 ×2; 80074; 82550; 82553; 83690; 83735; 84484; 85025 ×2; 85610; 85730; 81003; 83516; 82103; 84165; 86038; 83520; 71046; 76700; 71275; G0378 ×2; J3360; J0456 ×2; J0696 ×2; J1885; J7509 ×2; Q9967; J2270

== ENCOUNTER → 2017-10-16 | Outpatient (CLI) | payer SELFPAY ==
[2017-10-16 14:48] LABS: Albumin 4.3 g/dL (3.5-5.0); Bilirubin, Delta 0.3 mg/dL (0.0-0.2); Bilirubin,Unconjugated 0.4 mg/dL (0.0-1.1); Total Bilirubin 0.7 mg/dL (0.2-1.3)
--- NOTE | 2017-10-16 14:55 | US ---
EXAMINATION TYPE: US venous doppler duplex LE DATE OF EXAM: 10/16/2017 2:19 PM COMPARISON: NONE CLINICAL HISTORY: I80.310 Varicose veins. SIDE PERFORMED: vamsi TECHNIQUE: The lower extremity deep venous system is examined utilizing real time linear array sonog lamine with graded compression, doppler sonography and color-flow sonography. VESSELS IMAGED: External Iliac Vein (EIV) Common Femoral Vein Deep Femoral Vein Greater Saphenous Vein * Femoral Vein Popliteal Vein Small Saphenous Vein * Proximal Calf Veins (* superficial vessels) prominent varicoles in calf Grayscale, color doppler, spectral doppler imaging performed of the deep veins of the lower extremiti es. There is normal flow, compressibility, vascular waveforms. IMPRESSION: Right Leg: Negative for DVT Left Leg: Negative for DVT
== END | disposition home or self-care (01) ==
LOC: RADUSWWP 13:39
PROVIDERS: ATTEND Internal Medicine
DX: I83.10 Varicose veins of unspecified lower extremity with inflammation (principal); R74.8 Abnormal levels of other serum enzymes; Z79.899 Other long term (current) drug therapy
CPT/HCPCS: 36415; 80076; 93970

== ENCOUNTER 2018-02-28 13:55 | Emergency (ER) | payer OTHER ==
[2018-02-28] MEDS ORDERED: SODIUM CHLORIDE 0.9% 1,000 ML IV STA (14:45)
--- NOTE | 2018-02-28 14:48 | ED ---
General Adult HPI - General Chief complaint: Dizziness Stated complaint: bodyaches Time Seen by Provider: 02/28/18 14:38 Source: patient, RN notes reviewed Mode of arrival: ambulatory Limitations: no limitations - History of Present Illness Initial comments: Patient's a 57-year-old female presented to the emergency room today with a chief complaint of feeling lightheaded on and off over the last month. She does admit has been more this past week has been feeling feverish and chills. Patient states that she's had generalized body aches. She does admit to some sinus drainage over the last 3 or 4 days. Does admit to a mild cough. Denies any other complaints or symptoms. Patient denies any recent shortness of breath , chest pain, back pain, abdominal pain, nausea or vomiting, numbness or tingling, dysuria or hematuria, or any other complaints. - Related Data Home Medications Medication Instructions Recorded Confirmed Omeprazole [PriLOSEC] 20 mg PO BID 11/01/15 10/01/17 Calcium/Magnesium/Potassium 1 tab PO DAILY 10/07/16 10/01/17 Multivitamins, Thera Liquid 1 oz PO DAILY 10/07/16 10/01/17 [Theragran Liquid (formulary)] Vitamin B-12 Liquid 1 ml PO DAILY 10/07/16 10/01/17 Albuterol Inhaler [Ventolin Hfa 1 - 2 puff INHALATION RT-Q4H PRN 10/01/17 Inhaler] Biotin 10 mg PO DAILY 10/01/17 10/01/17 Milk Thistle 150 mg PO DAILY 10/01/17 10/01/17 Previous Rx's Medication Instructions Recorded Levofloxacin [Levaquin] 500 mg PO DAILY #5 tab 10/02/17 methylPREDNISolone Dose Pack 4 mg PO DIRECTED #21 package 10/02/17 [Medrol Dose Pack] Azithromycin [Zithromax Z-pack] 0 mg PO DIRECTED #6 tab 02/28/18 Allergies Allergy/AdvReac Type Severity Reaction Status Date / Time No Known Allergies Allergy Verified 02/28/18 14:13 Review of Systems ROS Statement: Those systems with pertinent positive or pertinent negative responses have been documented in the HPI. ROS Other: All systems not noted in ROS Statement are negative. Past Medical History Past Medical History: GERD/Reflux Additional Past Medical History / Comment(s): VARICOSE VEINS, H PYLORI History of Any Multi-Drug Resistant Organisms: None Reported Past Surgical History: Cholecystectomy Additional Past Surgical History / Comment(s): VEIN STRIPPING RIGHT LEG X2, COLONOSCOPY, EGD Past Anesthesia/Blood Transfusion Reactions: No Reported Reaction Past Psychological History: No Psychological Hx Reported Smoking Status: Current every day smoker Past Alcohol Use History: None Reported Past Drug Use History: None Reported - Past Family History Mother Family Medical History: Deep Vein Thrombosis (DVT) Additional Family Medical History / Comment(s): heart issues Father Family Medical History: CVA/TIA, Diabetes Mellitus Additional Family Medical History / Comment(s): liver issues General Exam - General Exam Comments Initial Comments: General: The patient is awake and alert, in no distress, and does not appear acutely ill. Eye: Pupils are equal, round and reactive to light, extra-ocular movements are intact. No nystagmus. There is normal conjunctiva bilaterally. No signs of icterus. Ears, nose, mouth and throat: There are moist mucous membranes and no oral lesions. No tenderness over the sinuses. TMs clear bilaterally. Neck: The neck is supple, there is no tenderness or JVD. Cardiovascular: There is a regular rate and rhythm. No murmur, rub or gallop is appreciated. Respiratory: Lungs are clear to auscultation, respirations are non-labored, breath sounds are equal. No stridor, rales, or rhonchi. Musculoskeletal: Normal ROM, no tenderness. Strength 5/5. Sensation intact. Pulses equal bilaterally 2+. Neurological: A&O x 3. CN II-XII intact, There are no obvious motor or sensory deficits. Coordination appears grossly intact. Speech is normal. Skin: Skin is warm and dry and no rashes or lesions are noted. Psychiatric: Cooperative, appropriate mood & affect, normal judgment. Limitations: no limitations Course Vital Signs 02/28/18 14:11 Temperature 98.6 F Pulse Rate 79 Respiratory 18 Rate Blood Pressure 98/60 O2 Sat by Pulse 98 Oximetry EKG Findings - EKG Comments: EKG Findings:: EKG performed at 1510: Shows normal sinus rhythm at 64 beats per minute. HI interval 166. QRS 102. QT/QTc is 390/402. No acute ST changes. Medical Decision Making - Medical Decision Making Patient's labs been reviewed. Sensations chest x-ray does show a right-sided pneumonia. Patient will be given dose Rocephin here in emergency room discharged home and continued on antibiotics. Advised to follow-up family doctor return to the emergency room symptoms increase worsen or for any other concerns. - Lab Data Result diagrams: 02/28/18 15:02 02/28/18 15:02 Lab Results 02/28/18 02/28/18 02/28/18 Range/Units 15:02 15:02 15:02 WBC 9.3 (3.8-10.6) k/uL RBC 4.15 (3.80-5.40) m/uL Hgb 12.9 (11.4-16.0) gm/dL Hct 39.1 (34.0-46.0) % MCV 94.2 (80.0-100.0) fL MCH 31.1 (25.0-35.0) pg MCHC 33.0 (31.0-37.0) g/dL RDW 12.5 (11.5-15.5) % Plt Count 236 (150-450) k/uL Neutrophils % 74 % Lymphocytes % 14 % Monocytes % 9 % Eosinophils % 1 % Basophils % 0 % Neutrophils # 6.9 (1.3-7.7) k/uL Lymphocytes # 1.4 (1.0-4.8) k/uL Monocytes # 0.8 (0-1.0) k/uL Eosinophils # 0.1 (0-0.7) k/uL Basophils # 0.0 (0-0.2) k/uL PT (9.0-12.0) sec INR (<1.2) APTT (22.0-30.0) sec Sodium 138 (137-145) mmol/L Potassium 3.9 (3.5-5.1) mmol/L Chloride 106 (98-107) mmol/L Carbon Dioxide 26 (22-30) mmol/L Anion Gap 6 mmol/L BUN 18 H (7-17) mg/dL Creatinine 0.60 (0.52-1.04) mg/dL Est GFR (CKD-EPI)AfAm >90 (>60 ml/min/1.73 sqM) Est GFR (CKD-EPI)NonAf >90 (>60 ml/min/1.73 sqM) Glucose 96 (74-99) mg/dL Calcium 9.3 (8.4-10.2) mg/dL Total Bilirubin 1.2 (0.2-1.3) mg/dL AST 21 (14-36) U/L ALT 28 (9-52) U/L Alkaline Phosphatase 53 (38-126) U/L Total Creatine Kinase 40 (30-135) U/L CK-MB (CK-2) 0.5 (0.0-2.4) ng/mL CK-MB (CK-2) Rel Index 1.3 Troponin I <0.012 (0.000-0.034) ng/mL Total Protein 7.1 (6.3-8.2) g/dL Albumin 4.1 (3.5-5.0) g/dL Urine Color Urine Appearance (Clear) Urine pH (5.0-8.0) Ur Specific [place] (1.001-1.035) Urine Protein (Negative) Urine Glucose (UA) (Negative) Urine Ketones (Negative) Urine Blood (Negative) Urine Nitrite (Negative) Urine Bilirubin (Negative) Urine Urobilinogen (<2.0) mg/dL Ur Leukocyte Esterase (Negative) Urine RBC (0-5) /hpf Urine WBC (0-5) /hpf Ur Squamous Epith Cells (0-4) /hpf Urine Bacteria (None) /hpf Urine Mucus (None) /hpf 02/28/18 02/28/18 Range/Units 15:02 15:02 WBC (3.8-10.6) k/uL RBC (3.80-5.40) m/uL Hgb (11.4-16.0) gm/dL Hct (34.0-46.0) % MCV (80.0-100.0) fL MCH (25.0-35.0) pg MCHC (31.0-37.0) g/dL RDW (11.5-15.5) % Plt Count (150-450) k/uL Neutrophils % % Lymphocytes % % Monocytes % % Eosinophils % % Basophils % % Neutrophils # (1.3-7.7) k/uL Lymphocytes # (1.0-4.8) k/uL Monocytes # (0-1.0) k/uL Eosinophils # (0-0.7) k/uL Basophils # (0-0.2) k/uL PT 10.3 (9.0-12.0) sec INR 1.1 (<1.2) APTT 25.7 (22.0-30.0) sec Sodium (137-145) mmol/L Potassium (3.5-5.1) mmol/L Chloride (98-107) mmol/L Carbon Dioxide (22-30) mmol/L Anion Gap mmol/L BUN (7-17) mg/dL Creatinine (0.52-1.04) mg/dL Est GFR (CKD-EPI)AfAm (>60 ml/min/1.73 sqM) Est GFR (CKD-EPI)NonAf (>60 ml/min/1.73 sqM) Glucose (74-99) mg/dL Calcium (8.4-10.2) mg/dL Total Bilirubin (0.2-1.3) mg/dL AST (14-36) U/L ALT (9-52) U/L Alkaline Phosphatase (38-126) U/L Total Creatine Kinase (30-135) U/L CK-MB (CK-2) (0.0-2.4) ng/mL CK-MB (CK-2) Rel Index Troponin I (0.000-0.034) ng/mL Total Protein (6.3-8.2) g/dL Albumin (3.5-5.0) g/dL Urine Color Yellow Urine Appearance Cloudy H (Clear) Urine pH 5.0 (5.0-8.0) Ur Specific [place] 1.020 (1.001-1.035) Urine Protein Trace H (Negative) Urine Glucose (UA) Negative (Negative) Urine Ketones Negative (Negative) Urine Blood Small H (Negative) Urine Nitrite Negative (Negative) Urine Bilirubin Negative (Negative) Urine Urobilinogen <2.0 (<2.0) mg/dL Ur Leukocyte Esterase Trace H (Negative) Urine RBC 3 (0-5) /hpf Urine WBC 2 (0-5) /hpf Ur Squamous Epith Cells 3 (0-4) /hpf Urine Bacteria Rare H (None) /hpf Urine Mucus Many H (None) /hpf Disposition Clinical Impression: CAP (community acquired pneumonia) Disposition: HOME SELF-CARE Condition: Good Instructions: Community Acquired Pneumonia (ED) Additional Instructions: Please use medication as discussed. Please follow-up with family doctor in the next 2 days of symptoms have not improved. Please return to emergency room if the symptoms increase or worsen or for any other concerns. Prescriptions: Azithromycin [Zithromax Z-pack] 0 mg PO DIRECTED #6 tab Is patient prescribed a controlled substance at d/c from ED?: No Referrals: Caty Mijares MD [Primary Care Provider] - 1-2 days Time of Disposition: 16:02
[2018-02-28 15:11] LABS: Basophils % (A) 0 %; Eosinophils # (A) 0.1 k/uL (0-0.7); Eosinophils % (A) 1 %; HCT 39.1 % (34.0-46.0); HGB 12.9 gm/dL (11.4-16.0); Lymphocytes # (A) 1.4 k/uL (1.0-4.8); Lymphocytes % (A) 14 %; MCH 31.1 pg (25.0-35.0); MCV 94.2 fL (80.0-100.0); Mean Platelet Volume 6.8; Monocytes # (A) 0.8 k/uL (0-1.0); Monocytes % (A) 9 %; Neutrophils # (A) 6.9 k/uL (1.3-7.7); Neutrophils % (A) 74 %; Platelet Count 236 k/uL (150-450); RBC 4.15 m/uL (3.80-5.40); RDW 12.5 % (11.5-15.5); WBC 9.3 k/uL (3.8-10.6)
[2018-02-28 15:21] LABS: Appearance,Urine Cloudy (Clear); Bacteria,Urine Rare /hpf; Bilirubin,Urine Negative (Negative); Blood,Urine Small (Negative); Color,Urine Yellow; Glucose,Urine (UA) Negative (Negative); Ketones,Urine Negative (Negative); Leukocyte Esterase,Urine Trace (Negative); Mucus,Urine Many /hpf; Nitrite,Urine Negative (Negative); Protein,Urine Trace (Negative); RBC,Urine 3 /hpf (0-5); Squamous Epithelial Cell,Urine 3 /hpf (0-4); Urobilinogen,Urine <2.0 mg/dL (<2.0); WBC,Urine 2 /hpf (0-5)
[2018-02-28 15:22] LABS: ALT 28 U/L (9-52); AST 21 U/L (14-36); Albumin 4.1 g/dL (3.5-5.0); Alkaline Phosphatase 53 U/L (38-126); Anion Gap 6 mmol/L; Blood Urea Nitrogen 18 mg/dL (7-17); Calcium 9.3 mg/dL (8.4-10.2); Carbon Dioxide 26 mmol/L (22-30); Chloride 106 mmol/L (98-107); Glucose 96 mg/dL (74-99); Potassium 3.9 mmol/L (3.5-5.1); Sodium 138 mmol/L (137-145); Total Bilirubin 1.2 mg/dL (0.2-1.3); Total Protein 7.1 g/dL (6.3-8.2)
[2018-02-28 15:23] LABS: INR 1.1 (<1.2); Prothrombin Time 10.3 sec (9.0-12.0)
[2018-02-28 15:24] LABS: Partial Thromboplastin Time 25.7 sec (22.0-30.0)
[2018-02-28 15:32] LABS: Creatine Kinase 40 U/L (30-135)
[2018-02-28 15:45] LABS: Creatine Kinase MB 0.5 ng/mL (0.0-2.4); Troponin I <0.012 ng/mL (0.000-0.034)
--- NOTE | 2018-02-28 15:47 | XR ---
EXAMINATION TYPE: XR chest 2V DATE OF EXAM: 02/28/2018 COMPARISON: 10/08/2017 HISTORY: 57-year-old female with cough TECHNIQUE: PA and lateral views FINDINGS: Heart normal size. Aorta and pulmonary vasculature within normal limits. No focal right basilar opaci ty. No other consolidation or pleural effusion. IMPRESSION: New focal right basilar opacity. Given the patient's cough, pneumonia is suggested. Follow-up after t reatment to ensure clearance and exclude mass.
[2018-02-28] MEDS ORDERED: cefTRIAXone 1,000 MG VIAL (IM USE) IM STA (16:01)
[2018-02-28] MEDS ORDERED: cefTRIAXone IN SWFI 1,000 MG/10 ML SYRINGE IVP STA (16:02)
[2018-02-28 16:31] VITALS: BP 130/70; PULSE 78; RESP 16; TEMP 98.4
== END 2018-02-28 16:30 | disposition home or self-care (01) ==
LOC: EC 13:55
DX: J18.9 Pneumonia, unspecified organism (principal); K21.9 Gastro-esophageal reflux disease without esophagitis; F17.200 Nicotine dependence, unspecified, uncomplicated; Z79.899 Other long term (current) drug therapy
CPT/HCPCS: 36415; 93005; 80053; 82550; 82553; 84484; 85025; 85610; 85730; 81001; 71046; 99284; 96374; 96361; J0696

== ENCOUNTER 2018-03-30 10:09 | Emergency (ER) | payer OTHER ==
--- NOTE | 2018-03-30 10:50 | ED ---
Female Urogenital HPI - General Chief complaint: Vaginal Bleeding Stated complaint: abn vaginal bleeding Time Seen by Provider: 03/30/18 10:24 Source: patient, RN notes reviewed, old records reviewed Mode of arrival: ambulatory Limitations: no limitations - History of Present Illness Initial comments: 57-year-old female presents respiratory states she landed of vaginal bleeding onset at 4 AM. Patient states that she went to a bathroom and noticed some blood in her urine as well as blood within when she wiped. Patient states that she's not had a menstrual period approximately 10 years. She did have an abnormal Pap screen 6 months ago. Patient states that she has followed up with an [employer] [facility]. They recommended against a colposcopy at that time. Patient states that she's had no fevers or chills. She reports some lower abdominal cramping pain. She denies any back pain or chest pain or shortness of breath. - Related Data Home Medications Medication Instructions Recorded Confirmed Omeprazole [PriLOSEC] 20 mg PO BID 11/01/15 03/30/18 Calcium/Magnesium/Potassium 1 tab PO DAILY 10/07/16 03/30/18 Milk Thistle 150 mg PO DAILY 10/01/17 03/30/18 Ginkgo Biloba 500 mg PO DAILY 03/30/18 03/30/18 Multivitamins, Thera [Multivitamin 1 tab PO DAILY 03/30/18 03/30/18 (formulary)] Vitamin B Complex 1 cap PO DAILY 03/30/18 03/30/18 Allergies Allergy/AdvReac Type Severity Reaction Status Date / Time No Known Allergies Allergy Verified 03/30/18 11:04 Review of Systems ROS Statement: Those systems with pertinent positive or pertinent negative responses have been documented in the HPI. ROS Other: All systems not noted in ROS Statement are negative. Past Medical History Past Medical History: GERD/Reflux Additional Past Medical History / Comment(s): VARICOSE VEINS, H PYLORI History of Any Multi-Drug Resistant Organisms: None Reported Past Surgical History: Cholecystectomy Additional Past Surgical History / Comment(s): VEIN STRIPPING RIGHT LEG X2, COLONOSCOPY, EGD Past Anesthesia/Blood Transfusion Reactions: No Reported Reaction Past Psychological History: No Psychological Hx Reported Smoking Status: Current every day smoker Past Alcohol Use History: Rare Past Drug Use History: Marijuana - Past Family History Mother Family Medical History: Deep Vein Thrombosis (DVT) Additional Family Medical History / Comment(s): heart issues Father Family Medical History: CVA/TIA, Diabetes Mellitus Additional Family Medical History / Comment(s): liver issues General Exam - General Exam Comments Initial Comments: His is a 57-year-old female. Alert and oriented. No significant distress. Limitations: no limitations General appearance: alert Head exam: Present: atraumatic, normocephalic, normal inspection Eye exam: Present: normal appearance, PERRL, EOMI. Absent: scleral icterus, conjunctival injection, periorbital swelling ENT exam: Present: normal exam, mucous membranes moist Neck exam: Present: normal inspection. Absent: tenderness, meningismus, lymphadenopathy Respiratory exam: Present: normal lung sounds bilaterally. Absent: respiratory distress, wheezes, rales, rhonchi, stridor Cardiovascular Exam: Present: regular rate, normal rhythm, normal heart sounds. Absent: systolic murmur, diastolic murmur, rubs, gallop, clicks GI/Abdominal exam: Present: soft, normal bowel sounds. Absent: distended, tenderness, guarding, rebound, rigid External exam: Present: normal external exam Speculum exam: Present: normal speculum exam, other (Patient had somewhat friable appearing cervix. There is no bleeding. No abnormal discharge.). Absent: erythema, vaginal discharge, cervical discharge, vaginal bleeding By manual exam: Present: normal by manual exam. Absent: cervical motion tenderness, adnexal tenderness, adnexal mass, uterine enlargement Extremities exam: Present: normal inspection, full ROM, normal capillary refill. Absent: tenderness, pedal edema, joint swelling, calf tenderness Back exam: Present: normal inspection Neurological exam: Present: alert, oriented X3, CN II-XII intact Psychiatric exam: Present: normal affect, normal mood Skin exam: Present: warm, dry, intact, normal color. Absent: rash Course Vital Signs 03/30/18 03/30/18 10:14 12:53 Temperature 97.8 F 97.5 F L Pulse Rate 55 L 60 Respiratory 16 18 Rate Blood Pressure 107/59 120/63 O2 Sat by Pulse 100 99 Oximetry Medical Decision Making - Medical Decision Making 57-year-old female presents raise her stay with abnormal uterine bleeding. Short she had some bleeding which she had a urine sample earlier today. At this time patient's UA is negative for blood or infection. Pelvic exam shows no bleeding. I did not see any hemorrhoids on rectal examination. Patient had transvaginal ultrasound. There is evidence of pelvic varices. Patient states ultrasound had a hard time visualizing ovary due to overlying bowel gas and changes. I did discuss the Patient should follow-up with [employer] [facility]. Discussed close return parameters. - Lab Data Lab Results 03/30/18 Range/Units 11:00 Urine Color Yellow Urine Appearance Clear (Clear) Urine pH 6.5 (5.0-8.0) Ur Specific [place] 1.013 (1.001-1.035) Urine Protein Negative (Negative) Urine Glucose (UA) Negative (Negative) Urine Ketones Negative (Negative) Urine Blood Negative (Negative) Urine Nitrite Negative (Negative) Urine Bilirubin Negative (Negative) Urine Urobilinogen <2.0 (<2.0) mg/dL Ur Leukocyte Esterase Negative (Negative) - Radiology Data Radiology results: report reviewed Varices. Ovaries were not visualized and limited evaluation. Of endometrial site measures normal limits. No free fluid. Disposition Clinical Impression: Pelvic varices Disposition: HOME SELF-CARE Condition: Good Instructions: Dysfunctional Uterine Bleeding (ED) Additional Instructions: Patient has a follow-up with primary care physician. Return to emergency department if any alarming signs or symptoms occur. Is patient prescribed a controlled substance at d/c from ED?: No Referrals: Caty Mijares MD [Primary Care Provider] - 1-2 days Velma Wharton DO [Doctor of Osteopathic Medicine] - 1-2 days Time of Disposition: 13:13
[2018-03-30 11:15] LABS: Appearance,Urine Clear (Clear); Bilirubin,Urine Negative (Negative); Blood,Urine Negative (Negative); Color,Urine Yellow; Glucose,Urine (UA) Negative (Negative); Ketones,Urine Negative (Negative); Leukocyte Esterase,Urine Negative (Negative); Nitrite,Urine Negative (Negative); PH, Urine 6.5 (5.0-8.0); Protein,Urine Negative (Negative); Specific Gravity,Urine 1.013 (1.001-1.035); Urobilinogen,Urine <2.0 mg/dL (<2.0)
--- NOTE | 2018-03-30 12:47 | US ---
EXAMINATION TYPE: US transvaginal DATE OF EXAM: 03/30/2018 COMPARISON: NONE CLINICAL HISTORY: Patient 10 years postmenopausal, bleeding this morning and spotting this afternoon. TECHNIQUE: Transvaginal (TV). Date of LMP: 10 years prior EXAM MEASUREMENTS: Uterus: 6.3 x 3.1 x 4.0 cm Endometrial Stripe: 0.2cm Right Ovary: not visualized, atrophy/overlying bowel Left Ovary: not visualized, atrophy/overlying bowel Prominent vascularity within uterus and in bilateral adnexa. 1. Uterus: Anteverted 2. Endometrium: wnl 3. Right Ovary: not visualized, atrophy/overlying bowel 4. Left Ovary: not visualized, atrophy/overlying bowel 5. Bilateral Adnexa: wnl 6. Posterior cul-de-sac: wnl IMPRESSION: 1. Pelvic varices. Ovaries were not visualized and are Limited in evaluation. Endometrial stripe natasha ures within normal limits. No free fluid.
[2018-03-30 12:56] VITALS: BP 120/63; PULSE 60; RESP 18; TEMP 97.5
== END 2018-03-30 13:22 | disposition home or self-care (01) ==
LOC: EC 10:09
DX: I86.2 Pelvic varices (principal); K21.9 Gastro-esophageal reflux disease without esophagitis; F17.200 Nicotine dependence, unspecified, uncomplicated; Z90.49 Acquired absence of other specified parts of digestive tract; Z98.890 Other specified postprocedural states; Z79.899 Other long term (current) drug therapy
CPT/HCPCS: 76830; 81003; 87070; 87205; 99284

== ENCOUNTER → 2018-08-14 | Outpatient (CLI) | payer OTHER ==
--- NOTE | 2018-08-14 13:18 | XR ---
Chest x-ray with right RIBS HISTORY: Trauma and pain Frontal view of the chest, 4 views of the right ribs submitted and correlated prior chest x-ray dated 02/28/2018 Chest x-ray is unremarkable, no evident airspace disease, pneumothorax, or pleural effusion. Cardiome diastinal silhouette, pulmonary vascularity and reji are stable. No evident displaced rib fracture. S urgical clips present right upper quadrant. IMPRESSION: Bone scan could be performed for increased sensitivity if occult fracture is suspected cl inically.
== END | disposition home or self-care (01) ==
LOC: RADXRYALE 10:31
PROVIDERS: ATTEND Physician Assistant Medical
DX: R07.82 Intercostal pain (principal); R07.1 Chest pain on breathing

== ENCOUNTER 2019-04-23 09:36 | Inpatient (IN) | payer OTHER ==
[2019-04-23] MEDS ORDERED: SODIUM CHLORIDE 0.9% 1,000 ML IV STA ×2 (10:43)
[2019-04-23] MEDS ORDERED: IPRATROPIUM-ALBUTEROL 3 ML NEB INHALATION STA (10:43)
--- NOTE | 2019-04-23 10:46 | ED ---
URI HPI <Guero Qureshi - Last Filed: 04/23/19 12:57> - General Source: patient, RN notes reviewed, old records reviewed Mode of arrival: ambulatory <Trinity Buck - Last Filed: 04/23/19 13:13> - General Chief Complaint: Upper Respiratory Infection Stated Complaint: sick for 10 days Time Seen by Provider: 04/23/19 10:00 - History of Present Illness Initial Comments: Patient i is a 58-year-old female, she presents emergency department today for evaluation for 10 days of fevers cough and not feeling well. Patient reports that she's had a congestion that time. She saw primary care doctor initially was told was a virus. Patient was then followed up with her primary was started on a Z-Alfredo. He'll be the last day of her azithromycin. Patient reports that she is continued to have fevers cough and congestion and feeling well and well despite the antibiotics. (Trinity Buck) - Related Data Home Medications Medication Instructions Recorded Confirmed Omeprazole [PriLOSEC] 20 mg PO BID 11/01/15 04/23/19 Milk Thistle 150 mg PO DAILY 10/01/17 04/23/19 Multivitamins, Thera [Multivitamin 1 tab PO DAILY 03/30/18 04/23/19 (formulary)] Azithromycin [Zithromax Z-pack] See Taper PO DAILY 04/23/19 04/23/19 Magnesium 200 mg PO DAILY 04/23/19 04/23/19 predniSONE See Taper PO DAILY 04/23/19 04/23/19 Allergies Allergy/AdvReac Type Severity Reaction Status Date / Time No Known Allergies Allergy Verified 04/23/19 12:46 Review of Systems ROS Other: All systems not noted in ROS Statement are negative. <Guero Qureshi - Last Filed: 04/23/19 12:57> ROS Other: All systems not noted in ROS Statement are negative. <Trinity Buck - Last Filed: 04/23/19 13:13> ROS Statement: Those systems with pertinent positive or pertinent negative responses have been documented in the HPI. Past Medical History Past Medical History: GERD/Reflux Additional Past Medical History / Comment(s): VARICOSE VEINS, H PYLORI History of Any Multi-Drug Resistant Organisms: None Reported Past Surgical History: Cholecystectomy Additional Past Surgical History / Comment(s): VEIN STRIPPING RIGHT LEG, COLONOSCOPY, EGD Past Anesthesia/Blood Transfusion Reactions: No Reported Reaction Past Psychological History: No Psychological Hx Reported Smoking Status: Current every day smoker Past Alcohol Use History: None Reported Past Drug Use History: None Reported - Past Family History Mother Family Medical History: Deep Vein Thrombosis (DVT) Additional Family Medical History / Comment(s): heart issues Father Family Medical History: CVA/TIA, Diabetes Mellitus Additional Family Medical History / Comment(s): liver issues <HeberTrinity - Last Filed: 04/23/19 13:13> General Exam General appearance: alert, in no apparent distress Head exam: Present: atraumatic, normocephalic, normal inspection Eye exam: Present: normal appearance, PERRL, EOMI. Absent: scleral icterus, conjunctival injection, periorbital swelling ENT exam: Present: normal exam, mucous membranes moist Neck exam: Present: normal inspection. Absent: tenderness, meningismus, lymphadenopathy Respiratory exam: Present: normal lung sounds bilaterally, wheezes. Absent: respiratory distress, rales, rhonchi, stridor Cardiovascular Exam: Present: regular rate, normal rhythm, normal heart sounds. Absent: systolic murmur, diastolic murmur, rubs, gallop, clicks GI/Abdominal exam: Present: soft, normal bowel sounds. Absent: distended, tenderness, guarding, rebound, rigid Extremities exam: Present: normal inspection, full ROM, normal capillary refill. Absent: tenderness, pedal edema, joint swelling, calf tenderness Back exam: Present: normal inspection Neurological exam: Present: alert, oriented X3, CN II-XII intact Psychiatric exam: Present: normal affect, normal mood <HeberTrinity - Last Filed: 04/23/19 13:13> - General Exam Comments Initial Comments: 58-year-old female. Alert and oriented. (Trinity Buck) Course Vital Signs 04/23/19 04/23/19 04/23/19 09:55 10:58 11:13 Temperature 98.8 F Pulse Rate 77 72 76 Respiratory 18 Rate Blood Pressure 121/73 O2 Sat by Pulse 98 Oximetry 04/23/19 04/23/19 11:18 12:48 Temperature 97.9 F Pulse Rate 81 Respiratory 19 17 Rate Blood Pressure 121/64 O2 Sat by Pulse 97 Oximetry Medical Decision Making - Lab Data Result diagrams: 04/23/19 11:09 04/23/19 11:09 <Guero Qureshi - Last Filed: 04/23/19 12:57> - Lab Data Result diagrams: 04/23/19 11:09 04/23/19 11:09 - Radiology Data Radiology results: report reviewed <Trinity Buck - Last Filed: 04/23/19 13:13> - Medical Decision Making Case was discussed with practitioner Trinity. Chart and results and x-ray reviewed. Case was also discussed with Dr. Burgess, who will admit covering for Dr. Munoz (Guero Qureshi) 58-year-old female presents return today for evaluation for persistent cough, feeling unwell for the past 10 days. She has a history of alpha-1 trypsin disorder. She reports that makes her chronically elevated liver enzymes Patient denies abdominal pain. She says generally become continues to cough. She's been on azithromycin and this is her last day. Chest x-ray is completed shows multiple areas of concern for pneumonia. Patient was given IV fluids labwork obtained. Mild leukocytosis of 13,000. Liver enzymes are mildly elevated. She reports that this is to be chronic for her. Patient at this time will be admitted to the hospital for failure of outpatient treatment for pneumonia. Chest x-ray did recommend follow-up with a computed tomography scan to rule out underlying masses. This will be completed inpatiently. (Trinity Buck) - Lab Data Lab Results 04/23/19 04/23/19 04/23/19 Range/Units 11:09 11:09 11:09 WBC 13.0 H (3.8-10.6) k/uL RBC 3.97 (3.80-5.40) m/uL Hgb 12.7 (11.4-16.0) gm/dL Hct 37.4 (34.0-46.0) % MCV 94.2 (80.0-100.0) fL MCH 31.9 (25.0-35.0) pg MCHC 33.9 (31.0-37.0) g/dL RDW 12.1 (11.5-15.5) % Plt Count 485 H (150-450) k/uL Neutrophils % 74 % Lymphocytes % 19 % Monocytes % 4 % Eosinophils % 1 % Basophils % 1 % Neutrophils # 9.7 H (1.3-7.7) k/uL Lymphocytes # 2.4 (1.0-4.8) k/uL Monocytes # 0.5 (0-1.0) k/uL Eosinophils # 0.1 (0-0.7) k/uL Basophils # 0.1 (0-0.2) k/uL PT 9.5 (9.0-12.0) sec INR 0.9 (<1.2) APTT 26.7 (22.0-30.0) sec Sodium 141 (137-145) mmol/L Potassium 3.7 (3.5-5.1) mmol/L Chloride 103 (98-107) mmol/L Carbon Dioxide 29 (22-30) mmol/L Anion Gap 9 mmol/L BUN 13 (7-17) mg/dL Creatinine 0.49 L (0.52-1.04) mg/dL Est GFR (CKD-EPI)AfAm >90 (>60 ml/min/1.73 sqM) Est GFR (CKD-EPI)NonAf >90 (>60 ml/min/1.73 sqM) Glucose 98 (74-99) mg/dL Calcium 9.8 (8.4-10.2) mg/dL Magnesium 2.0 (1.6-2.3) mg/dL Total Bilirubin 0.4 (0.2-1.3) mg/dL AST 60 H (14-36) U/L ALT 97 H (9-52) U/L Alkaline Phosphatase 228 H (38-126) U/L Troponin I (0.000-0.034) ng/mL Total Protein 7.7 (6.3-8.2) g/dL Albumin 4.0 (3.5-5.0) g/dL 04/23/19 Range/Units 11:09 WBC (3.8-10.6) k/uL RBC (3.80-5.40) m/uL Hgb (11.4-16.0) gm/dL Hct (34.0-46.0) % MCV (80.0-100.0) fL MCH (25.0-35.0) pg MCHC (31.0-37.0) g/dL RDW (11.5-15.5) % Plt Count (150-450) k/uL Neutrophils % % Lymphocytes % % Monocytes % % Eosinophils % % Basophils % % Neutrophils # (1.3-7.7) k/uL Lymphocytes # (1.0-4.8) k/uL Monocytes # (0-1.0) k/uL Eosinophils # (0-0.7) k/uL Basophils # (0-0.2) k/uL PT (9.0-12.0) sec INR (<1.2) APTT (22.0-30.0) sec Sodium (137-145) mmol/L Potassium (3.5-5.1) mmol/L Chloride (98-107) mmol/L Carbon Dioxide (22-30) mmol/L Anion Gap mmol/L BUN (7-17) mg/dL Creatinine (0.52-1.04) mg/dL Est GFR (CKD-EPI)AfAm (>60 ml/min/1.73 sqM) Est GFR (CKD-EPI)NonAf (>60 ml/min/1.73 sqM) Glucose (74-99) mg/dL Calcium (8.4-10.2) mg/dL Magnesium (1.6-2.3) mg/dL Total Bilirubin (0.2-1.3) mg/dL AST (14-36) U/L ALT (9-52) U/L Alkaline Phosphatase (38-126) U/L Troponin I <0.012 (0.000-0.034) ng/mL Total Protein (6.3-8.2) g/dL Albumin (3.5-5.0) g/dL 04/23/19 13:12 EKG performed at 1055 shows sinus rhythm with occasional PVCs otherwise normal EKG. Ventricular rate of 76 bpm. Verbal 148 ms. QRS duration is 90 ms. QT QTc is 400/450 (Trinity Buck) - Radiology Data Chest x-ray shows multifocal airspace disease which could be indicative of pneumonia. Short-term follow-up with CT is recommended to exclude underlying masses. (Trinity Buck) Disposition <Guero Qureshi - Last Filed: 04/23/19 12:57> Is patient prescribed a controlled substance at d/c from ED?: No Time of Disposition: 13:13 <Aranyos,Trinity - Last Filed: 04/23/19 13:13> Clinical Impression: Failure of outpatient treatment, Pneumonia Disposition: ADMITTED IP TO THIS [facility] Condition: Good Additional Instructions: Please use medication as discussed. Please follow up with family doctor if symptoms have not improved over the next two days. Please return to the emergency room if your symptoms increase or worsen or for any other concerns. Referrals: Pablo Adams DO [Primary Care Provider] - 1-2 days
[2019-04-23 11:30] LABS: Basophils # (A) 0.1 k/uL (0-0.2); Basophils % (A) 1 %; Eosinophils # (A) 0.1 k/uL (0-0.7); Eosinophils % (A) 1 %; HCT 37.4 % (34.0-46.0); HGB 12.7 gm/dL (11.4-16.0); Lymphocytes # (A) 2.4 k/uL (1.0-4.8); Lymphocytes % (A) 19 %; MCH 31.9 pg (25.0-35.0); MCHC 33.9 g/dL (31.0-37.0); MCV 94.2 fL (80.0-100.0); Mean Platelet Volume 5.6; Monocytes # (A) 0.5 k/uL (0-1.0); Monocytes % (A) 4 %; Neutrophils # (A) 9.7 k/uL (1.3-7.7); Neutrophils % (A) 74 %; Platelet Count 485 k/uL (150-450); RBC 3.97 m/uL (3.80-5.40); RDW 12.1 % (11.5-15.5)
[2019-04-23 11:45] LABS: ALT 97 U/L (9-52); AST 60 U/L (14-36); African American GFR (CKD) >90 (>60 ml/min/1.73 sqM); Alkaline Phosphatase 228 U/L (38-126); Anion Gap 9 mmol/L; Blood Urea Nitrogen 13 mg/dL (7-17); Calcium 9.8 mg/dL (8.4-10.2); Carbon Dioxide 29 mmol/L (22-30); Chloride 103 mmol/L (98-107); Glucose 98 mg/dL (74-99); Potassium 3.7 mmol/L (3.5-5.1); Sodium 141 mmol/L (137-145); Total Bilirubin 0.4 mg/dL (0.2-1.3); Total Protein 7.7 g/dL (6.3-8.2)
[2019-04-23 11:56] LABS: INR 0.9 (<1.2); Partial Thromboplastin Time 26.7 sec (22.0-30.0); Prothrombin Time 9.5 sec (9.0-12.0)
--- NOTE | 2019-04-23 12:02 | XR ---
EXAMINATION TYPE: XR chest 2V DATE OF EXAM: 04/23/2019 COMPARISON: Prior chest x-ray 08/14/2018 HISTORY: Difficulty breathing, chest pain TECHNIQUE: Frontal and lateral views of the chest are obtained. FINDINGS: Patchy bilateral airspace disease is present although there is a somewhat nodular componen t. No evident pneumothorax or pleural effusion. Cardiac mediastinal silhouette, pulmonary vascularity and reji are within normal limits. IMPRESSION: Multifocal airspace disease could be indicative of pneumonia, short interval follow-up c hest CT is recommended to exclude underlying masses.
[2019-04-23] MEDS ORDERED: RX INFO: IV CONTRAST WAS GIVEN 1 EACH MISC MISCELLANE PRN (13:14)
[2019-04-23] MEDS ORDERED: LEVOFLOXACIN 750MG-D5W PMX 750 MG in DEXTROSE/WATER 1 150ML.BAG IVPB STA (13:15)
[2019-04-23] MEDS ORDERED: PNEUMONIA PROTOCOL UTILIZED 1 EACH MISC PO PRN (13:15)
[2019-04-23] MEDS ORDERED: IPRATROPIUM-ALBUTEROL 3 ML NEB INHALATION PRN (13:15)
--- NOTE | 2019-04-23 14:05 | P.HPIM ---
History of Present Illness This is a pleasant 58 years old female with past medical history of GERD, varicose veins. Presents because of dyspnea. Patient says that she's been weak for 10 days and feeling sick, she went to her PCP 3 times for this 10 days and a gave her Z-Alfredo, 1 Shot of IV antibiotics, and that the chest x-ray and told her she has no pneumonia and then gave her prednisone 2 days ago. Patient resents now with dyspnea and right-sided chest pain, pleuritic like, radiating to the back and to the side, felt like sharp, moderate to severe in severity, increase by coughing and, deep breathing and movement. She has cough and making dark p hlegm. She has generalized body ache and mild conjunctivitis. Also patient is heavy smoker, quit about one week ago when she got sick. No colorless instructions Patient this is the third time of pneumonia this year, also she has family history of alpha-1 antitrypsin deficiency with affect her liver disease, also she has mildly elevated liver enzymes Vitas looks stable. Patient is afebrile. WBC is slightly elevated at 13 K, rest of CBC, INR, BMP are unremarkable. Creatinine 0.49, liver enzymes slightly elevated with AST 60 and ALT 97. Troponin is negative. EKG showing normal sinus rhythm at 76 with PVC, no significant ST-T changes. Chest x-ray: Multifocal airspace disease, suspect pneumonia. Cannot rule out mass. Computed tomography scan of the chest was recommended and ordered by PT came on Admission patient was started on antibiotics with Levaquin, as well as normal saline at 100 mL per hour Review of Systems CONSTITUTIONAL: No fever, no malaise, no fatigue. HEENT: No recent visual problems or hearing problems. Denied any sore throat. CARDIOVASCULAR: No orthopnea, PND, no palpitations, no syncope. PULMONARY: no hemoptysis. GASTROINTESTINAL: No diarrhea, no nausea, no vomiting, no abdominal pain. Normoactive bowel sounds. NEUROLOGICAL: No headaches, no weakness, no numbness. HEMATOLOGICAL: Denies any bleeding or petechiae. GENITOURINARY: Denies any burning micturition, frequency, or urgency. MUSCULOSKELETAL/RHEUMATOLOGICAL: Denies any joint pain, swelling, or any muscle pain. ENDOCRINE: Denies any polyuria or polydipsia. Past Medical History Past Medical History: GERD/Reflux Additional Past Medical History / Comment(s): VARICOSE VEINS, H PYLORI History of Any Multi-Drug Resistant Organisms: None Reported Past Surgical History: Cholecystectomy Additional Past Surgical History / Comment(s): VEIN STRIPPING RIGHT LEG, COLONOSCOPY, EGD Past Anesthesia/Blood Transfusion Reactions: No Reported Reaction Past Psychological History: No Psychological Hx Reported Smoking Status: Current every day smoker Past Alcohol Use History: None Reported Past Drug Use History: None Reported - Past Family History Mother Family Medical History: Deep Vein Thrombosis (DVT) Additional Family Medical History / Comment(s): heart issues Father Family Medical History: CVA/TIA, Diabetes Mellitus Additional Family Medical History / Comment(s): liver issues Medications and Allergies Home Medications Medication Instructions Recorded Confirmed Type Omeprazole [PriLOSEC] 20 mg PO BID 11/01/15 04/23/19 History Milk Thistle 150 mg PO DAILY 10/01/17 04/23/19 History Multivitamins, Thera [Multivitamin 1 tab PO DAILY 03/30/18 04/23/19 History (formulary)] Azithromycin [Zithromax Z-pack] See Taper PO DAILY 04/23/19 04/23/19 History Magnesium 200 mg PO DAILY 04/23/19 04/23/19 History predniSONE See Taper PO DAILY 04/23/19 04/23/19 History Allergies Allergy/AdvReac Type Severity Reaction Status Date / Time No Known Allergies Allergy Verified 04/23/19 12:46 Physical Exam Vitals: Vital Signs Temp Pulse Resp BP Pulse Ox 04/23/19 12:48 97.9 F 81 17 121/64 97 04/23/19 11:18 19 04/23/19 11:13 76 04/23/19 10:58 72 04/23/19 09:55 98.8 F 77 18 121/73 98 Intake and Output 04/22/19 04/23/19 04/23/19 22:59 06:59 14:59 Other: Weight 70.307 kg GENERAL: The patient is alert and oriented x3, not in any acute distress. Well developed, well nourished. HEENT: Pupils are round and equally reacting to light. EOMI. No scleral icterus. No conjunctival pallor. Normocephalic, atraumatic. No pharyngeal erythema. No thyromegaly. CARDIOVASCULAR: S1 and S2 present. No murmurs, rubs, or gallops. -PULMONARY: Chest is clear to auscultation, no wheezing or crackles. Bilateral scattered bronchial breathing ABDOMEN: Soft, nontender, nondistended, normoactive bowel sounds. No palpable organomegaly. MUSCULOSKELETAL: No joint swelling or deformity. EXTREMITIES: No cyanosis, clubbing, or pedal edema. NEUROLOGICAL: Gross neurological examination did not reveal any focal deficits. SKIN: No rashes. No petechiae Results CBC & Chem 7: 04/23/19 11:09 04/23/19 11:09 Labs: Abnormal Lab Results - Last 24 Hours (Table) 04/23/19 04/23/19 Range/Units 11:09 11:09 WBC 13.0 H (3.8-10.6) k/uL Plt Count 485 H (150-450) k/uL Neutrophils # 9.7 H (1.3-7.7) k/uL Creatinine 0.49 L (0.52-1.04) mg/dL AST 60 H (14-36) U/L ALT 97 H (9-52) U/L Alkaline Phosphatase 228 H (38-126) U/L Assessment and Plan Assessment: Multifocal pneumonia on both sides. 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 Continue with antibiotics. Since sputum culture. Call pulmonary consult. Influenza Labs and medication were reviewed.. Continue same treatment. Continue with symptomatic treatment. Resume home medication. Monitor lytes and vitals. DVT and GI prophylaxis. Further recommendations of the clinical course of the patient DVT prophylaxis: Subcutaneous heparin GI Prophylaxis: Pepcid Prognosis is guarded
--- NOTE | 2019-04-23 14:09 | CT ---
EXAMINATION TYPE: CT chest w con DATE OF EXAM: 04/23/2019 COMPARISON: 10/01/2017 HISTORY: abnormal cxr today CT DLP: 258.7 mGycm Automated exposure control for dose reduction was used. CONTRAST: CT scan of the chest is performed with IV Contrast, patient injected with 100 mL of Isovue 300. FINDINGS: LUNGS: Multifocal infiltrates are noted throughout both lung nagel felt to reflect multifocal pneumo ministerio. Correlate clinically follow up until resolution is advised. No pleural effusion is seen. No evid ence of volume loss. MEDIASTINUM: There are no greater than 1 cm hilar or mediastinal lymph nodes. No pericardial effusi on is seen. Thoracic aorta is of normal caliber. The heart is not enlarged. UPPER ABDOMEN: No significant abnormality appreciated. OTHER: No additional significant abnormality is seen. IMPRESSION: Multifocal infiltrates are noted throughout both lung nagel felt to reflect multifocal pneumonia. Correlate clinically follow up until resolution is advised.
[2019-04-23] MEDS: ACETAMINOPHEN TAB 325 MG TAB PO PRN (16:07)
[2019-04-23] MEDS ORDERED: BENZOCAINE/MENTHOL LOZENG 1 EACH LOZENGE MUCOUS MEM PRN (19:55)
[2019-04-23] MEDS: FAMOTIDINE 20 MG/2 ML VIAL IV SCH ×2 (21:38→21:41)
[2019-04-23] MEDS: HEPARIN SODIUM,PORCINE 5,000 UNIT/ML 1 ML VIAL SQ SCH (21:39)
[2019-04-23] MEDS: BENZONATATE 100 MG CAP PO SCH (21:39)
[2019-04-23] MEDS ORDERED: diphenhydrAMINE 25 MG CAP PO PRN (22:00)
[2019-04-24] MEDS: ACETAMINOPHEN TAB 325 MG TAB PO PRN ×3 (01:16→19:57)
[2019-04-24] MEDS: FAMOTIDINE 20 MG/2 ML VIAL IV SCH (06:25)
[2019-04-24 08:31] LABS: Basophils % (A) 0 %; Eosinophils # (A) 0.2 k/uL (0-0.7); Eosinophils % (A) 2 %; HCT 35.6 % (34.0-46.0); HGB 11.9 gm/dL (11.4-16.0); Lymphocytes # (A) 1.9 k/uL (1.0-4.8); Lymphocytes % (A) 22 %; MCH 31.8 pg (25.0-35.0); MCHC 33.3 g/dL (31.0-37.0); MCV 95.5 fL (80.0-100.0); Mean Platelet Volume 5.8; Monocytes # (A) 0.4 k/uL (0-1.0); Monocytes % (A) 4 %; Neutrophils # (A) 6.3 k/uL (1.3-7.7); Neutrophils % (A) 70 %; Platelet Count 491 k/uL (150-450); RBC 3.73 m/uL (3.80-5.40); RDW 12.3 % (11.5-15.5)
[2019-04-24 08:48] LABS: African American GFR (CKD) >90 (>60 ml/min/1.73 sqM); Anion Gap 8 mmol/L; Blood Urea Nitrogen 10 mg/dL (7-17); Calcium 9.5 mg/dL (8.4-10.2); Carbon Dioxide 28 mmol/L (22-30); Chloride 104 mmol/L (98-107); Glucose 122 mg/dL (74-99); Potassium 4.3 mmol/L (3.5-5.1); Sodium 140 mmol/L (137-145)
[2019-04-24] MEDS: BENZONATATE 100 MG CAP PO SCH ×3 (09:24→21:19)
[2019-04-24] MEDS: HEPARIN SODIUM,PORCINE 5,000 UNIT/ML 1 ML VIAL SQ SCH ×2 (09:25→21:19)
--- NOTE | 2019-04-24 14:24 | P.CNPUL ---
History of Present Illness Consult date: 04/24/19 Requesting physician: Brian Burgess Reason for consult: dyspnea, cough, abnormal CXR/CT Chief complaint: Shortness of breath, cough, congestion History of present illness: This is a very pleasant 58-year-old female patient who follows with Dr. Adams as her primary care physician. She has a history of lower extremity varicose veins, gastroesophageal reflux disease, elevated liver enzymes, chronic tobacco dependence, previous left lower lobe pneumonia with pleurisy. She had been seen in our office in September 2017 following hospitalization for left lower lobe pneumonia. She is having dyspnea on exertion. She was seen and evaluated by Dr. Alcantara. PFTs were unremarkable. 6 minute walk unremarkable. DVTs ruled out. CT angiogram showed no PE. She had been doing well from the pulmonary standpoint until recently when she developed increasing shortness of breath, cough and congestion. She was seen a week ago by her PCP and was given 1 round of antibiotics. She had subsequently seen them again with the order for a Z-Alfredo and chest x-ray revealing no pneumonia. Prednisone was added. She continued to feel poorly and presented here to the emergency room yesterday. Chest x-ray showed multifocal airspace disease and computed tomography scan revealed multifocal infiltrates throughout both lung nagel suspected to represent multifocal pneumonia. We're consulted for the same. She is seen today on the regular medical floor. She is awake and alert in no acute distress. Has a loose productive cough of yellow sputum. Sputum culture pending. She is maintaining O2 saturations in the 90s on room air. Currently afebrile. White count 9.0. Hemoglobin 11.9. Creatinine 0.52. Influenza screen negative. AST 60, ALT 97. Blood cultures pending. She's been initiated on DuoNeb inhalations,, antibiotics in the form of Levaquin. Review of Systems REVIEW OF SYSTEMS: CONSTITUTIONAL: Denies any recent significant weight loss or weight gain. EYES: Denies change in vision. EARS, NOSE, MOUTH, THROAT: Denies headaches, denies sore throat. CARDIOVASCULAR: Denies chest pain, palpitations or syncopal episodes. RESPIRATORY: Positive for shortness of breath, cough, congestion no hemoptysis. GASTROINTESTINAL: Denies change in appetite, denies abdominal pain GENITOURINARY: Denies hematuria, denies infections. MUSKULOSKELETAL: Denies pain, denies swelling. INTEGUMENTARY: Denies rash, denies eczema. NEUROLOGICAL: Denies recent memory loss, no recent seizure activity. PSYCHIATRIC: Denies anxiety, denies depression. HEMATOLOGIC/LYMPHATIC: Denies anemia, denies enlarged lymph nodes. Past Medical History Past Medical History: GERD/Reflux Additional Past Medical History / Comment(s): Pneumonias (pt states this is her 3rd pneumonia this year), bilateral leg varicosities, H pylori. Pt states she has family (sister) with alpha-1 antitrypsin deficiency, patient's was within normal limits September 2017. History of Any Multi-Drug Resistant Organisms: None Reported Past Surgical History: Cholecystectomy Additional Past Surgical History / Comment(s): EGD, colonoscopy, R leg vein stripping x 2. Past Anesthesia/Blood Transfusion Reactions: No Reported Reaction, Motion Sickness Smoking Status: Current every day smoker - Past Family History Mother Family Medical History: Deep Vein Thrombosis (DVT) Additional Family Medical History / Comment(s): Mother had heart issues. She of a collapsed lung at the age of 89yrs. Father Family Medical History: CVA/TIA, Diabetes Mellitus, Liver Disease Additional Family Medical History / Comment(s): Father had liver issues- nonalcoholic liver cirrhosis. He of a blood infection at the age of 65yrs. Sister(s) Family Medical History: Liver Disease Additional Family Medical History / Comment(s): Sister with alpha-1 antitrypsin deficiency/liver transplant Medications and Allergies Home Medications Medication Instructions Recorded Confirmed Type Omeprazole [PriLOSEC] 20 mg PO BID 11/01/15 04/23/19 History Milk Thistle 150 mg PO DAILY 10/01/17 04/23/19 History Multivitamins, Thera [Multivitamin 1 tab PO DAILY 03/30/18 04/23/19 History (formulary)] Azithromycin [Zithromax Z-pack] See Taper PO DAILY 04/23/19 04/23/19 History Magnesium 200 mg PO DAILY 04/23/19 04/23/19 History predniSONE See Taper PO DAILY 04/23/19 04/23/19 History Allergies Allergy/AdvReac Type Severity Reaction Status Date / Time No Known Allergies Allergy Verified 04/23/19 12:46 Physical Exam Vitals: Vital Signs Temp Pulse Pulse Resp BP Pulse Ox 04/24/19 13:54 98.3 F 70 14 124/69 96 04/24/19 08:13 72 04/24/19 08:00 72 97 04/24/19 04:00 97.7 F 66 18 117/74 95 04/23/19 20:35 97.9 F 74 24 105/62 95 04/23/19 20:00 74 24 04/23/19 15:15 95 04/23/19 15:05 98.2 F 78 16 132/81 98 Intake and Output 04/23/19 04/24/19 04/24/19 22:59 06:59 14:59 Other: # Voids 1 2 3 GENERAL EXAM: Alert, active, comfortable in no apparent distress. HEAD: Normocephalic. EYES: Normal reaction of pupils, equal size. NOSE: Clear with pink turbinates. THROAT: No erythema or exudates. NECK: No masses, no JVD. CHEST: No chest wall deformity. LUNGS: Equal air entry with bilateral scattered rhonchi. CVS: S1 and S2 normal with no audible murmur, regular rhythm. ABDOMEN: No hepatosplenomegaly, normal bowel sounds, no guarding or rigidity. SPINE: No scoliosis or deformity SKIN: No rashes CENTRAL NERVOUS SYSTEM: No focal deficits, tone is normal in all 4 extremities. EXTREMITIES: There is no peripheral edema. No clubbing, no cyanosis. Peripheral pulses are intact. Results - Laboratory Findings CBC and BMP: 04/24/19 08:05 04/24/19 08:05 PT/INR, D-dimer PT 9.5 sec (9.0-12.0) 04/23/19 11:09 INR 0.9 (<1.2) 04/23/19 11:09 Abnormal lab findings: Abnormal Labs 04/23/19 04/23/19 04/24/19 11:09 11:09 08:05 WBC 13.0 H RBC 3.73 L Plt Count 485 H 491 H Neutrophils # 9.7 H Creatinine 0.49 L Glucose AST 60 H ALT 97 H Alkaline Phosphatase 228 H 04/24/19 08:05 WBC RBC Plt Count Neutrophils # Creatinine Glucose 122 H AST ALT Alkaline Phosphatase - Diagnostic Findings Chest x-ray: image reviewed CT scan - chest: image reviewed Assessment and Plan Assessment: Impression: #1 Acute community-acquired bilateral multifocal pneumonia. #2 Chronic and ongoing tobacco dependence. #3 History of elevated LFTs with normal alpha-1 antitrypsin. #4 History of marijuana use. #5 Gastroesophageal reflux disease. Plan: The patient was seen and evaluated by Dr. Alcantara. Chest x-ray CAT scan and labs all reviewed. We'll continue with Levaquin, bronchodilators. Increase her activity as tolerated. We'll continue to follow and make further recommendations based on her clinical status. She is educated regarding the importance of complete smoking cessation. NicoDerm patch will be offered. I, the cosigning physician, performed a history & physical examination of the patient. Lungs sounds with bilateral scattered rhonchi. Maintaining good O2 saturations in the 90s on room air. I discussed the assessment and plan of care with my nurse practitioner, Sisi Buchanan. I attest to the above consultation as dictated by her. Time with Patient: Greater than 30
[2019-04-24] MEDS: LEVOFLOXACIN 750MG-D5W PMX 750 MG in DEXTROSE/WATER 1 150ML.BAG IVPB SCH (15:00)
--- NOTE | 2019-04-24 16:45 | P.PN ---
Subjective This is a pleasant 58 years old female with past medical history of GERD, varicose veins. Presents because of dyspnea. Patient says that she's been weak for 10 days and feeling sick, she went to her PCP 3 times for this 10 days and a gave her Z-Alfredo, 1 Shot of IV antibiotics, and that the chest x-ray and told her she has no pneumonia and then gave her prednisone 2 days ago. Patient resents now with dyspnea and right-sided chest pain, pleuritic like, radiating to the back and to the side, felt like sharp, moderate to severe in severity, increase by coughing and, deep breathing and movement. She has cough and making dark phlegm. She has generalized body ache and mild conjunctivitis. Also patient is heavy smoker, quit about one week ago when she got sick. No colorless instructions Patient this is the third time of pneumonia this year, also she has family history of alpha-1 antitrypsin deficiency with affect her liver disease, also s he has mildly elevated liver enzymes Vitas looks stable. Patient is afebrile. WBC is slightly elevated at 13 K, rest of CBC, INR, BMP are unremarkable. Creatinine 0.49, liver enzymes slightly elevated with AST 60 and ALT 97. Troponin is negative. EKG showing normal sinus rhythm at 76 with PVC, no significant ST-T changes. Chest x-ray: Multifocal airspace disease, suspect pneumonia. Cannot rule out mass. Computed tomography scan of the chest was recommended and ordered by PT came on Admission patient was started on antibiotics with Levaquin, as well as normal saline at 100 mL per hour 04/24/2019 Today patient is still a little bit dyspneic and coughing with phlegm same as she came in with. Since admission she was saturating in 90s on room air. However her leukocytosis came back down to normal at 9.0K, rest of her BMP fluid and electrolytes creatinines are within normal limits while inflow as that is not detected in her nasopharyngeal swab. Sputum culture is still pending. Pulmonary team evaluated the patient and their input is appreciated. Patient currently on Levaquin and breathing treatment. Review of systems CONSTITUTIONAL: No fever, no malaise, no fatigue. HEENT: No recent visual problems or hearing problems. Denied any sore throat. CARDIOVASCULAR: No orthopnea, PND, no palpitations, no syncope. PULMONARY: no hemoptysis. GASTROINTESTINAL: No diarrhea, no nausea, no vomiting, no abdominal pain. Normoactive bowel sounds. NEUROLOGICAL: No headaches, no weakness, no numbness. HEMATOLOGICAL: Denies any bleeding or petechiae. GENITOURINARY: Denies any burning micturition, frequency, or urgency. MUSCULOSKELETAL/RHEUMATOLOGICAL: Denies any joint pain, swelling, or any muscle pain. ENDOCRINE: Denies any polyuria or polydipsia. Objective - Vital Signs Vital signs: Vital Signs Temp 98.3 F 04/24/19 13:54 Pulse 70 04/24/19 13:54 Resp 14 04/24/19 13:54 BP 124/69 04/24/19 13:54 Pulse Ox 96 04/24/19 13:54 Intake & Output 04/23/19 04/24/19 04/24/19 18:59 06:59 18:59 Weight 70.307 kg Other: # Voids 2 3 - Exam GENERAL: The patient is alert and oriented x3, not in any acute distress. Well developed, well nourished. HEENT: Pupils are round and equally reacting to light. EOMI. No scleral icterus. No conjunctival pallor. Normocephalic, atraumatic. No pharyngeal erythema. No thyromegaly. CARDIOVASCULAR: S1 and S2 present. No murmurs, rubs, or gallops. -PULMONARY: Chest is clear to auscultation, no wheezing or crackles. Bilateral scattered bronchial breathing ABDOMEN: Soft, nontender, nondistended, normoactive bowel sounds. No palpable organomegaly. MUSCULOSKELETAL: No joint swelling or deformity. EXTREMITIES: No cyanosis, clubbing, or pedal edema. NEUROLOGICAL: Gross neurological examination did not reveal any focal deficits. SKIN: No rashes. No petechiae - Labs CBC & Chem 7: 04/24/19 08:05 04/24/19 08:05 Labs: Abnormal Lab Results - Last 24 Hours (Table) 04/24/19 04/24/19 Range/Units 08:05 08:05 RBC 3.73 L (3.80-5.40) m/uL Plt Count 491 H (150-450) k/uL Glucose 122 H (74-99) mg/dL Microbiology - Last 24 Hours (Table) 04/23/19 14:10 Blood Culture - Preliminary Blood No Growth after 24 hours 04/23/19 11:09 Blood Culture - Preliminary Blood No Growth after 24 hours 04/24/19 12:00 Sputum Culture - Preliminary Sputum Assessment and Plan Assessment: Multifocal pneumonia on both sides. 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 Continue with antibiotics. Since sputum culture. Call pulmonary consult. Influenza Labs and medication were reviewed.. Continue same treatment. Continue with symptomatic treatment. Resume home medication. Monitor lytes and vitals. DVT and GI prophylaxis. Further recommendations of the clinical course of the patient DVT prophylaxis: Subcutaneous heparin GI Prophylaxis: Pepcid Prognosis is guarded
[2019-04-24] MEDS: FAMOTIDINE 20 MG TAB PO SCH (18:35)
[2019-04-24] MEDS: TEMAZEPAM 15 MG CAP PO PRN (21:19)
[2019-04-25] MEDS: FAMOTIDINE 20 MG TAB PO SCH ×2 (06:03→18:11)
[2019-04-25] MEDS: BENZONATATE 100 MG CAP PO SCH ×3 (06:47→21:06)
[2019-04-25] MEDS: HEPARIN SODIUM,PORCINE 5,000 UNIT/ML 1 ML VIAL SQ SCH ×2 (07:37→20:27)
[2019-04-25] MEDS: ACETAMINOPHEN TAB 325 MG TAB PO PRN (07:38)
[2019-04-25 08:01] LABS: Basophils % (A) 0 %; Eosinophils # (A) 0.2 k/uL (0-0.7); Eosinophils % (A) 2 %; HCT 40.5 % (34.0-46.0); HGB 13.3 gm/dL (11.4-16.0); Lymphocytes # (A) 1.7 k/uL (1.0-4.8); Lymphocytes % (A) 23 %; MCHC 32.7 g/dL (31.0-37.0); MCV 94.7 fL (80.0-100.0); Mean Platelet Volume 5.5; Monocytes # (A) 0.4 k/uL (0-1.0); Monocytes % (A) 5 %; Neutrophils % (A) 66 %; Platelet Count 586 k/uL (150-450); RBC 4.28 m/uL (3.80-5.40); RDW 12.2 % (11.5-15.5); WBC 7.5 k/uL (3.8-10.6)
[2019-04-25 08:17] LABS: African American GFR (CKD) >90 (>60 ml/min/1.73 sqM); Anion Gap 9 mmol/L; Blood Urea Nitrogen 15 mg/dL (7-17); Carbon Dioxide 30 mmol/L (22-30); Chloride 100 mmol/L (98-107); Glucose 94 mg/dL (74-99); Potassium 4.5 mmol/L (3.5-5.1); Sodium 139 mmol/L (137-145)
--- NOTE | 2019-04-25 10:17 | P.PN ---
Subjective This is a pleasant 58 years old female with past medical history of GERD, varicose veins. Presents because of dyspnea. Patient says that she's been weak for 10 days and feeling sick, she went to her PCP 3 times for this 10 days and a gave her Z-Alfredo, 1 Shot of IV antibiotics, and that the chest x-ray and told her she has no pneumonia and then gave her prednisone 2 days ago. Patient resents now with dyspnea and right-sided chest pain, pleuritic like, radiating to the back and to the side, felt like sharp, moderate to severe in severity, increase by coughing and, deep breathing and movement. She has cough and making dark phlegm. She has generalized body ache and mild conjunctivitis. Also patient is heavy smoker, quit about one week ago when she got sick. No colorless instructions Patient this is the third time of pneumonia this year, also she has family history of alpha-1 antitrypsin deficiency with affect her liver disease, also s he has mildly elevated liver enzymes Vitas looks stable. Patient is afebrile. WBC is slightly elevated at 13 K, rest of CBC, INR, BMP are unremarkable. Creatinine 0.49, liver enzymes slightly elevated with AST 60 and ALT 97. Troponin is negative. EKG showing normal sinus rhythm at 76 with PVC, no significant ST-T changes. Chest x-ray: Multifocal airspace disease, suspect pneumonia. Cannot rule out mass. Computed tomography scan of the chest was recommended and ordered by PT came on Admission patient was started on antibiotics with Levaquin, as well as normal saline at 100 mL per hour 04/24/2019 Today patient is still a little bit dyspneic and coughing with phlegm same as she came in with. Since admission she was saturating in 90s on room air. However her leukocytosis came back down to normal at 9.0K, rest of her BMP fluid and electrolytes creatinines are within normal limits while inflow as that is not detected in her nasopharyngeal swab. Sputum culture is still pending. Pulmonary team evaluated the patient and their input is appreciated. Patient currently on Levaquin and breathing treatment. 04/25/2019 Patient with no dyspnea or chest pain. She is fully awake, complaining of from significant headache. She's been here for multifocal bilateral pneumonia, she still needs IV antibiotics. Pulmonary services are following the patient. She is on room air. Although she has headache but no focal neurological deficit, no weakness or numbness or sensory deficits. Endolaser grossly intact Patient is concerned about her up for 1 antitrypsin deficiency that transplant and her family, she has a sister and cousin related liver transplant. We will recheck her liver function test, patient is counseled to follow up with her PCP within one week regarding family history of health 1 antitrypsin deficiency Objective - Vital Signs Vital signs: Vital Signs Temp 98.0 F 04/25/19 04:15 Pulse 72 04/25/19 04:15 Resp 22 04/25/19 04:15 BP 114/71 04/25/19 04:15 Pulse Ox 94 L 04/25/19 04:15 Intake & Output 04/24/19 04/25/19 04/25/19 18:59 06:59 18:59 Other: # Voids 3 3 - Exam GENERAL: The patient is alert and oriented x3, not in any acute distress. Well developed, well nourished. HEENT: Pupils are round and equally reacting to light. EOMI. No scleral icterus. No conjunctival pallor. Normocephalic, atraumatic. No pharyngeal erythema. No thyromegaly. CARDIOVASCULAR: S1 and S2 present. No murmurs, rubs, or gallops. -PULMONARY: Chest is clear to auscultation, no wheezing or crackles. Bilateral scattered bronchial breathing ABDOMEN: Soft, nontender, nondistended, normoactive bowel sounds. No palpable organomegaly. MUSCULOSKELETAL: No joint swelling or deformity. EXTREMITIES: No cyanosis, clubbing, or pedal edema. NEUROLOGICAL: Gross neurological examination did not reveal any focal deficits. SKIN: No rashes. No petechiae - Labs CBC & Chem 7: 04/25/19 07:17 04/25/19 07:17 Labs: Abnormal Lab Results - Last 24 Hours (Table) 04/25/19 Range/Units 07:17 Plt Count 586 H (150-450) k/uL Microbiology - Last 24 Hours (Table) 04/24/19 12:00 Gram Stain - Preliminary Sputum Sputum Culture - Preliminary 04/23/19 14:10 Blood Culture - Preliminary Blood No Growth after 24 hours 04/23/19 11:09 Blood Culture - Preliminary Blood No Growth after 24 hours Assessment and Plan Assessment: Multifocal pneumonia on both sides. 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 Continue with antibiotics. Since sputum culture. Follow-up recommendation by pulmonary consult. Symptomatic treatment of headache with Fioricet and Tylenol when necessary Labs and medication were reviewed.. Continue same treatment. Continue with symptomatic treatment. Resume home medication. Monitor lytes and vitals. DVT and GI prophylaxis. Further recommendations of the clinical course of the patient DVT prophylaxis: Subcutaneous heparin GI Prophylaxis: Pepcid Prognosis is guarded Patient is counseled to follow-up with her PCP and pulmonary and 1-2 weeks after discharge regarding her pneumonia and family history of alpha-1 antitrypsin deficiency and she agrees
[2019-04-25] MEDS: BUTALB/APAP/CAFF 50-325-40MG TAB PO PRN (10:54)
[2019-04-25 11:00] LABS: ALT 76 U/L (9-52); AST 40 U/L (14-36); Alkaline Phosphatase 221 U/L (38-126); Bilirubin, Delta 0.2 mg/dL (0.0-0.2); Bilirubin,Unconjugated 0.3 mg/dL (0.0-1.1); Total Bilirubin 0.5 mg/dL (0.2-1.3); Total Protein 7.8 g/dL (6.3-8.2)
--- NOTE | 2019-04-25 12:53 | P.PN ---
Subjective Progress Note Date: 04/25/19 Principal diagnosis: Acute multifocal pneumonia This is a very pleasant 58-year-old female patient who follows with Dr. Adams as her primary care physician. She has a history of lower extremity varicose veins, gastroesophageal reflux disease, elevated liver enzymes, chronic tobacco dependence, previous left lower lobe pneumonia with pleurisy. She had been seen in our office in September 2017 following hospitalization for left lower lobe pneumonia. She is having dyspnea on exertion. She was seen and evaluated by Dr. Alcantara. PFTs were unremarkable. 6 minute walk unremarkable. DVTs ruled out. CT angiogram showed no PE. She had been doing well from the pulmonary standpoint until recently when she developed increasing shortness of breath, cough and congestion. She was seen a week ago by her PCP and was given 1 round of antibiotics. She had subsequently seen them again with the order for a Z-Alfredo and chest x-ray revealing no pneumonia. Prednisone was added. She continued to feel poorly and presented here to the emergency room yesterday. Chest x-ray showed multifocal airspace disease and computed tomography scan revealed multifocal infiltrates throughout both lung nagel suspected to represent multifocal pneumonia. We're consulted for the same. She is seen today on the regular medical floor. She is awake and alert in no acute distress. Has a loose productive cough of yellow sputum. Sputum culture pending. She is maintaining O2 saturations in the 90s on room air. Currently afebrile. White count 9.0. Hemoglobin 11.9. Creatinine 0.52. Influenza screen negative. AST 60, ALT 97. Blood cultures pending. She's been initiated on DuoNeb inha lations,, antibiotics in the form of Levaquin. Patient was reevaluated today on , feeling better, less cough, less shortness of breath, O2 saturation is 96% on room air, no fever overnight, her T-max is 98.8. Sputum studies are pending. However overall the patient is feeling a bit better. I ordered a repeat chest x-ray in a.m., and depending on the chest x-ray further decisions will be made in the morning. Objective - Vital Signs Vital signs: Vital Signs Temp 98.0 F 04/25/19 04:15 Pulse 72 04/25/19 04:15 Resp 22 04/25/19 04:15 BP 114/71 04/25/19 04:15 Pulse Ox 94 L 04/25/19 04:15 Intake & Output 04/24/19 04/25/19 04/25/19 18:59 06:59 18:59 Other: # Voids 3 3 - Exam Physical Exam: Revealed a 58-year-old female in no distress, pleasant. Head: Atraumatic normocephalic. HEENT:[Neck is supple.] [No neck masses.] [No thyromegaly.] [No JVD.] Chest: [Clear throughout, no crackles, no rhonchi, no wheezes.] Cardiac Exam: [Normal S1 and S2, no S3 gallop, no murmur.] Abdomen: [Soft, nontender, no megaly, no rebound, no guarding, normal bowel sounds.] Extremities: [No clubbing, no edema, no cyanosis.] Neurological Exam: [No focal neurologic deficit.] Psychiatric: Normal mood affect and normal mental status examination. Lymphatics: No lymphadenopathy. Skin: No rashes - Labs CBC & Chem 7: 04/25/19 07:17 04/25/19 07:17 Labs: Abnormal Lab Results - Last 24 Hours (Table) 04/25/19 04/25/19 Range/Units 07:17 07:17 Plt Count 586 H (150-450) k/uL AST 40 H (14-36) U/L ALT 76 H (9-52) U/L Alkaline Phosphatase 221 H (38-126) U/L Microbiology - Last 24 Hours (Table) 04/24/19 12:00 Gram Stain - Preliminary Sputum Sputum Culture - Preliminary 04/23/19 14:10 Blood Culture - Preliminary Blood No Growth after 24 hours 04/23/19 11:09 Blood Culture - Preliminary Blood No Growth after 24 hours Assessment and Plan Assessment: #1 Acute community-acquired bilateral multifocal pneumonia. #2 Chronic and ongoing tobacco dependence. #3 History of elevated LFTs with normal alpha-1 antitrypsin. #4 History of marijuana use. #5 Gastroesophageal reflux disease. Continue present treatment plan, patient is presently on Levaquin, which is also on bronchodilators. Clinically improving, follow-up chest x-ray for a.m. was ordered, and depending on the chest x-ray findings and depending on how the patient feels in the next 24 hours, further recommendations will follow. We'll continue to follow. Time with Patient: Less than 30
[2019-04-25] MEDS: LEVOFLOXACIN 750MG-D5W PMX 750 MG in DEXTROSE/WATER 1 150ML.BAG IVPB SCH (13:00)
[2019-04-25] MEDS: IBUPROFEN 600 MG TAB PO PRN (15:33)
[2019-04-25] MEDS: TEMAZEPAM 15 MG CAP PO PRN (21:06)
[2019-04-25 22:10] VITALS: RESP 18; TEMP 97.7
[2019-04-25 23:57] LABS: Glucose,Whole Blood 99 mg/dL (75-99)
[2019-04-26 05:23] VITALS: BP 110/71; PULSE 66
[2019-04-26] MEDS: IBUPROFEN 600 MG TAB PO PRN (06:14)
[2019-04-26] MEDS: FAMOTIDINE 20 MG TAB PO SCH (06:19)
[2019-04-26] MEDS: HEPARIN SODIUM,PORCINE 5,000 UNIT/ML 1 ML VIAL SQ SCH (07:50)
[2019-04-26] MEDS: BENZONATATE 100 MG CAP PO SCH (08:22)
[2019-04-26 08:52] LABS: Basophils % (A) 0 %; Eosinophils # (A) 0.2 k/uL (0-0.7); Eosinophils % (A) 3 %; HCT 42.6 % (34.0-46.0); HGB 13.7 gm/dL (11.4-16.0); Hypochromasia Slight; Lymphocytes # (A) 1.8 k/uL (1.0-4.8); Lymphocytes % (A) 31 %; MCH 31.1 pg (25.0-35.0); MCHC 32.2 g/dL (31.0-37.0); MCV 96.6 fL (80.0-100.0); Mean Platelet Volume 5.5; Monocytes # (A) 0.3 k/uL (0-1.0); Monocytes % (A) 5 %; Neutrophils # (A) 3.4 k/uL (1.3-7.7); Neutrophils % (A) 59 %; Platelet Count 628 k/uL (150-450); RBC 4.41 m/uL (3.80-5.40); RDW 12.3 % (11.5-15.5); WBC 5.8 k/uL (3.8-10.6)
[2019-04-26 09:05] LABS: ALT 67 U/L (9-52); AST 34 U/L (14-36); African American GFR (CKD) >90 (>60 ml/min/1.73 sqM); Alkaline Phosphatase 183 U/L (38-126); Anion Gap 9 mmol/L; Bilirubin, Delta 0.1 mg/dL (0.0-0.2); Bilirubin,Unconjugated 0.3 mg/dL (0.0-1.1); Blood Urea Nitrogen 16 mg/dL (7-17); Calcium 9.7 mg/dL (8.4-10.2); Carbon Dioxide 31 mmol/L (22-30); Chloride 100 mmol/L (98-107); Glucose 94 mg/dL (74-99); Potassium 4.5 mmol/L (3.5-5.1); Sodium 140 mmol/L (137-145); Total Bilirubin 0.4 mg/dL (0.2-1.3); Total Protein 7.8 g/dL (6.3-8.2)
[2019-04-26] MEDS: BUTALB/APAP/CAFF 50-325-40MG TAB PO PRN (09:22)
--- NOTE | 2019-04-26 09:56 | XR ---
EXAMINATION TYPE: XR chest 2V DATE OF EXAM: 04/26/2019 COMPARISON: Chest x-ray 04/23/2019 HISTORY: Pneumonia TECHNIQUE: Frontal and lateral views of the chest are obtained. FINDINGS: There is interval improvement in the aeration within the lungs. Some residual patchy airsp josé luis disease is noted in the upper lobes. No pneumothorax or pleural effusion. Heart size is within no rmal limits. IMPRESSION: Improvement in aeration.
--- NOTE | 2019-04-26 12:33 | P.PN ---
Subjective Progress Note Date: 04/26/19 Principal diagnosis: Acute multifocal pneumonia This is a very pleasant 58-year-old female patient who follows with Dr. Adams as her primary care physician. She has a history of lower extremity varicose veins, gastroesophageal reflux disease, elevated liver enzymes, chronic tobacco dependence, previous left lower lobe pneumonia with pleurisy. She had been seen in our office in September 2017 following hospitalization for left lower lobe pneumonia. She is having dyspnea on exertion. She was seen and evaluated by Dr. Alcantara. PFTs were unremarkable. 6 minute walk unremarkable. DVTs ruled out. CT angiogram showed no PE. She had been doing well from the pulmonary sta ndpoint until recently when she developed increasing shortness of breath, cough and congestion. She was seen a week ago by her PCP and was given 1 round of antibiotics. She had subsequently seen them again with the order for a Z-Alfredo and chest x-ray revealing no pneumonia. Prednisone was added. She continued to feel poorly and presented here to the emergency room yesterday. Chest x-ray showed multifocal airspace disease and computed tomography scan revealed multifocal infiltrates throughout both lung nagel suspected to represent multifocal pneumonia. We're consulted for the same. She is seen today on the regular medical floor. She is awake and alert in no acute distress. Has a loose productive cough of yellow sputum. Sputum culture pending. She is maintaining O2 saturations in the 90s on room air. Currently afebrile. White count 9.0. Hemoglobin 11.9. Creatinine 0.52. Influenza screen negative. AST 60, ALT 97. Blood cultures pending. She's been initiated on DuoNeb inh alations,, antibiotics in the form of Levaquin. Patient was reevaluated today on , feeling better, less cough, less shortness of breath, O2 saturation is 96% on room air, no fever overnight, her T-max is 98.8. Sputum studies are pending. However overall the patient is feeling a bit better. I ordered a repeat chest x-ray in a.m., and depending on the chest x-ray further decisions will be made in the morning. On 04/18/2017 patient seen in follow-up on medical surgical floor. Note, o riented 3, no acute distress, denies any cough or congestion, room air pulse ox is 95%, she is afebrile, no chest pain, no hemoptysis, his overall she is feeling better, repeat chest x-ray today shows interval improvement in aeration within the lungs. There is some residual patient airspace disease in the upper lobes. Vital signs are stable, blood and sputum culture showed no growth. Today's lab work has been reviewed, no leukocytosis, white count of 628, BMP was unremarkable. Pro-calcitonin level was low at 0.04. No fever or chills overnight, patient is stable for discharge home today. Objective - Vital Signs Vital signs: Vital Signs Temp 97.7 F 04/26/19 04:30 Pulse 66 04/26/19 04:30 Resp 18 04/26/19 04:30 BP 110/71 04/26/19 04:30 Pulse Ox 95 04/26/19 04:30 Intake & Output 04/25/19 04/26/19 04/26/19 18:59 06:59 18:59 Intake Total 890 2040 Balance 890 2040 Intake: Oral 890 2040 Other: # Voids 1 1 - Exam GENERAL EXAM: Alert, pleasant 58-year-old white female comfortable in no apparent distress. HEAD: Normocephalic/atraumatic. EYES: Normal reaction of pupils, equal size. Conjunctiva pink, sclera white. NOSE: Clear with pink turbinates. THROAT: No erythema or exudates. NECK: No masses, no JVD, no thyroid enlargement, no adenopathy. CHEST: No chest wall deformity. Symmetrical expansion. LUNGS: Equal air entry with no crackles, wheeze, rhonchi or dullness. CVS: Regular rate and rhythm, normal S1 and S2, no gallops, no murmurs, no rubs ABDOMEN: Soft, nontender. No hepatosplenomegaly, normal bowel sounds, no gu arding or rigidity. EXTREMITIES: No clubbing, no edema, no cyanosis, 2+ pulses and upper and lower e xtremities. MUSCULOSKELETAL: Muscle strength and tone normal. SPINE: No scoliosis or deformity SKIN: No rashes CENTRAL NERVOUS SYSTEM: Alert and oriented -3. No focal deficits, tone is normal in all 4 extremities. PSYCHIATRIC: Alert and oriented -3. Appropriate affect. Intact judgment and insight. - Labs CBC & Chem 7: 04/26/19 08:01 04/26/19 08:01 Labs: Abnormal Lab Results - Last 24 Hours (Table) 04/26/19 04/26/19 Range/Units 08:01 08:01 Plt Count 628 H (150-450) k/uL Carbon Dioxide 31 H (22-30) mmol/L ALT 67 H (9-52) U/L Alkaline Phosphatase 183 H (38-126) U/L Microbiology - Last 24 Hours (Table) 04/24/19 12:00 Gram Stain - Final Sputum Sputum Culture - Final 04/23/19 14:10 Blood Culture - Preliminary Blood No Growth after 48 hours 04/23/19 11:09 Blood Culture - Preliminary Blood No Growth after 48 hours Assessment and Plan Plan: Assessment: #1 Acute community-acquired bilateral multifocal pneumonia. #2 Chronic and ongoing tobacco dependence. #3 History of elevated LFTs with normal alpha-1 antitrypsin. #4 History of marijuana use. #5 Gastroesophageal reflux disease. Plan: Patient is doing well, no fever or chills, vital signs are stable, no cough or congestion, no dyspnea, today's chest x-ray shows improvement in aeration in bilateral lungs, with some residual airspace disease in the upper lobes, stable from pulmonary perspective, patient can be discharged home on oral antibiotics, she will need follow-up with Dr. Og in the office in one to 2 weeks I performed a history & physical examination of the patient and discussed their management with my nurse practitioner, Kristy Carias. I reviewed the nurse practitioner's note and agree with the documented findings and plan of care. Lung sounds are positive for clear throughout the lung nagel. The findings and the impression was discussed with the patient. I attest to the documentation by the nurse practitioner. Time with Patient: Less than 30
[2019-04-26] MEDS ORDERED: LEVOFLOXACIN 750 MG TAB PO SCH (14:00)
[2019-04-26] MEDS ORDERED: FAMOTIDINE 20 MG TAB PO SCH (18:00)
--- NOTE | 2019-04-29 12:19 | P.DS ---
Providers Date of admission: 04/24/19 10:50 Attending physician: Brian Burgess Consults: 04/23/19 13:15 Consult Physician Stat Consulting Provider: Dayana Alcantara Reason/Comments: pneumonia, failure outpatient Do you want consulting provider notified?: Yes [facility] Course: Diagnoses -Multifocal pneumonia on both sides. Community-acquired -Nicotine dependence -Dehydration -Mild conjunctivitis on both sides -Mildly elevated liver enzymes, with history of Alpha I antitrypsin deficiency of the family, but it is trending down. pt is instructed to f/u the results with pcp and she is aware and agrees -History of recurrent pneumonia -History of Alpha I antitrypsin deficiency in the family -GERD, not an active issue Hospital course This is a pleasant 58 years old female with past medical history of GERD, varicose veins. Presents because of dyspnea. Patient says that she's been weak for 10 days and feeling sick, patient felt outpatient therapy with Z-Alfredo, and prednisone. She presents with dyspnea and right-sided chest pain. Associated with cough and phlegm. Patient was found to have bilateral multifocal pneumonia on chest x-ray and CAT scan of the chest. Senior Front End Developer evaluated the patient and she's been treated with Levaquin and bronchodilators. Patient showed interval improvement. Throughout her stay patient she was on room air and her dyspnea was mild anterior chest pain subsided eventually. Patient will be discharged on short course of antibiotic On the day of discharge she denies chest pain or dyspnea. No nausea vomiting. No change in urine or bowel habits. No abdominal pain. No fever Also patient is heavy smoker, quit about one week prior to admission when she got sick. Patient counseled to quit. Patient this is the third time of pneumonia this year, also she has family history of alpha-1 antitrypsin deficiency with affect her liver disease, also she has mildly elevated liver enzymes Patient is concerned about her up for 1 antitrypsin deficiency that transplant and her family, she has a sister and cousin related liver transplant. She has mildly elevated liver enzymes upon admission which are trending down, patient was encouraged to follow up with her PCP and sewing machine mechanic for further evaluation regarding this problem. Patient agrees Pulmonary service cleared The patient for discharge Problems and management plan were discussed with the patient and he verbalized understanding and acceptance Patient was found stable and can be discharged home however he needs follow-up as an outpatient. Patient was instructed to follow up with PCP within one week and patient agrees. pt agrees with appointments made for her and states she will follow up with pulmonary and pcp. pt is advised to recheck her cxr with her doctors and she agrees Gen: patient is a AAOx3, no distress CVS: S1-S2, RRR, no murmur Lungs: B/L CTA, no wheezing Abdomen: soft, no distention, no tenderness, positive bowel sounds Extremity: no leg edema or induration Time spent more than 35 minutes Patient Condition at Discharge: Good Plan - Discharge Summary Discharge Rx Participant: No New Discharge Prescriptions: New Levofloxacin [Levaquin] 750 mg PO Q24H #5 tab Benzonatate [Tessalon Perles] 100 mg PO TID PRN 3 Days #10 cap PRN Reason: Cough Albuterol Inhaler [Ventolin Hfa Inhaler] 1 - 2 puff INHALATION RT-Q6H PRN #1 inhaler PRN Reason: Shortness Of Breath Or Wheezing Continue Omeprazole [PriLOSEC] 20 mg PO BID Milk Thistle 150 mg PO DAILY Multivitamins, Thera [Multivitamin (formulary)] 1 tab PO DAILY predniSONE See Taper PO DAILY Magnesium 200 mg PO DAILY Azithromycin [Zithromax Z-pack] See Taper PO DAILY Discharge Medication List Omeprazole [PriLOSEC] 20 mg PO BID 11/01/15 [History] Milk Thistle 150 mg PO DAILY 10/01/17 [History] Multivitamins, Thera [Multivitamin (formulary)] 1 tab PO DAILY 03/30/18 [History] Azithromycin [Zithromax Z-pack] See Taper PO DAILY 04/23/19 [History] Magnesium 200 mg PO DAILY 04/23/19 [History] predniSONE See Taper PO DAILY 04/23/19 [History] Albuterol Inhaler [Ventolin Hfa Inhaler] 1 - 2 puff INHALATION RT-Q6H PRN #1 inhaler 04/26/19 [Rx] Benzonatate [Tessalon Perles] 100 mg PO TID PRN 3 Days #10 cap 04/26/19 [Rx] Levofloxacin [Levaquin] 750 mg PO Q24H #5 tab 04/26/19 [Rx] Follow up Appointment(s)/Referral(s): Dayana Alcantara MD [STAFF PHYSICIAN] - 05/17/19 1:30 pm (May 17 ) Pablo Adams DO [Primary Care Provider] - 04/27/19 1:00 pm (She will be seen at the [place] office.) Patient Instructions/Handouts: Viral Pneumonia (DC), How to Stop Smoking (DC) Activity/Diet/Wound Care/Special Instructions: Please use medication as discussed. Please follow up with family doctor if symptoms have not improved over the next two days. Please return to the emergency room if your symptoms increase or worsen or for any other concerns. regular diet activity as tolerated Discharge Disposition: HOME SELF-CARE
== END 2019-04-26 13:32 | disposition home or self-care (01) | DRG 195 ==
LOC: EC 09:36 → 4MS4W 12:57 → OBSVTOIN 04-24 10:50
PROVIDERS: ADMIT Internal Medicine; ATTEND Internal Medicine
DX: J18.9 Pneumonia, unspecified organism (principal); E86.0 Dehydration; F17.200 Nicotine dependence, unspecified, uncomplicated; H10.9 Unspecified conjunctivitis; I49.3 Ventricular premature depolarization; K21.9 Gastro-esophageal reflux disease without esophagitis; I83.90 Asymptomatic varicose veins of unspecified lower extremity; R74.8 Abnormal levels of other serum enzymes; Z87.01 Personal history of pneumonia (recurrent); Z79.899 Other long term (current) drug therapy; Z90.49 Acquired absence of other specified parts of digestive tract; Z83.3 Family history of diabetes mellitus; Z82.49 Family history of ischemic heart disease and other diseases of the circulatory system; Z82.3 Family history of stroke
CPT/HCPCS: 36415; 71046; 71260; 80048; 80053; 80076; 83735; 84145; 84484; 85025; 85610; 85730; 87040; 87070; 87205; 87502; 93005; 94640; 94760; 96360; 96361; 99285

== ENCOUNTER → 2019-08-06 | Outpatient (CLI) | payer OTHER ==
--- NOTE | 2019-08-09 09:30 | MM ---
Reason for exam: screening (asymptomatic). Last mammogram was performed 2 years and 10 months ago. History: Patient is postmenopausal. Physical Findings: A clinical breast exam by your physician is recommended on an annual basis and results should be correlated with mammographic findings. MG Screening Mammo w CAD Bilateral CC and MLO view(s) were taken. Prior study comparison: October 07, 2016, bilateral MG screening mammo w CAD. October 04, 2015, left breast MG work up mamm w CAD LT. The breast tissue is heterogeneously dense. This may lower the sensitivity of mammography. Benign appearing bilateral calcifications. No suspicious abnormality in the left breast. Right upper outer quadrant middle depth and posterior depth focal asymmetries. ASSESSMENT: Incomplete: need additional imaging evaluation, BI-RAD 0 RECOMMENDATION: Special view mammogram of the right breast. If lesion persists on supplemental views, image directed ultrasound is recommended. [facility] will attempt to contact patient to return for supplemental views and ultrasound if indicated.
== END | disposition home or self-care (01) ==
LOC: RADMAMWWP 10:08
PROVIDERS: ATTEND Family Medicine
DX: Z12.31 Encounter for screening mammogram for malignant neoplasm of breast (principal)
CPT/HCPCS: 77067

== ENCOUNTER → 2019-08-18 | Outpatient (CLI) | payer OTHER ==
--- NOTE | 2019-08-18 09:57 | MM ---
Reason for exam: additional evaluation requested from abnormal screening. Last mammogram was performed less than 1 month ago. History: Patient is postmenopausal. Physical Findings: Nurse did not find any significant physical abnormalities on exam. MG 3D Work Up W/Cad RT Spot compression CC, spot compression MLO, and LM view(s) were taken of the right breast. Prior study comparison: August 06, 2019, bilateral MG screening mammo w CAD. October 07, 2016, bilateral MG screening mammo w CAD. The breast tissue is heterogeneously dense. This may lower the sensitivity of mammography. No significant new findings when compared with previous films. These results were verbally communicated with the patient and result sheet given to the patient on 08/18/19. ASSESSMENT: Probably benign, BI-RAD 3 RECOMMENDATION: Follow-up diagnostic mammogram of the right breast in 6 months.
== END | disposition home or self-care (01) ==
LOC: RADMAMWWP 09:05
PROVIDERS: ATTEND Family Medicine
DX: R92.8 Other abnormal and inconclusive findings on diagnostic imaging of breast (principal)
CPT/HCPCS: 77061; 77065

== ENCOUNTER → 2020-03-21 | Outpatient (CLI) | payer SELFPAY ==
--- NOTE | 2020-03-21 09:34 | MM ---
Reason for exam: follow-up at short interval from prior study. Last mammogram was performed 7 months ago. History: Patient is postmenopausal. Physical Findings: Nurse did not find any significant physical abnormalities on exam. MG Diagnostic Mammo RT w CAD CC and MLO view(s) were taken of the right breast. Prior study comparison: August 18, 2019, right breast MG 3d work up w/cad RT. August 06, 2019, bilateral MG screening mammo w CAD. The breast tissue is heterogeneously dense. This may lower the sensitivity of mammography. Asymmetries in the right breast, stable. No significant new findings when compared with previous films. These results were verbally communicated with the patient and result sheet given to the patient on 03/21/20. ASSESSMENT: Benign, BI-RAD 2 RECOMMENDATION: Return to routine screening mammogram schedule for both breasts. Back on schedule for July 2020.
--- NOTE | 2020-03-21 09:55 | USB ---
Reason for exam: follow-up at short interval from prior study. History: Patient is postmenopausal. US Breast RT Right complete breast ultrasound includes all four quadrants, the retroareolar region and axilla. Finding demonstrates no cystic or solid lesion seen. These results were verbally communicated with the patient and result sheet given to the patient on 03/21/20. ASSESSMENT: Negative, BI-RAD 1 RECOMMENDATION: Return to routine screening mammogram schedule for both breasts. Back on schedule for July 2020.
== END | disposition home or self-care (01) ==
LOC: RADMAMWWP 07:05
PROVIDERS: ATTEND Family Medicine
DX: R92.2 Inconclusive mammogram (principal)
CPT/HCPCS: 77065

== ENCOUNTER 2020-05-26 10:05 | Emergency (ER) | payer OTHER ==
[2020-05-26 10:15] VITALS: BP 133/82; PULSE 53; RESP 18; TEMP 98.6
--- NOTE | 2020-05-26 10:30 | ED ---
Fall HPI - General Chief Complaint: Fall Stated Complaint: Fall hit head on right Time Seen by Provider: 05/26/20 10:16 Source: patient Mode of arrival: ambulatory - History of Present Illness Initial Comments: 59 year old female presents today for fall around 930AM. Patient states that she fell and tripped on approximate 5 steps she states she hit the right side of her head on a light switch. Patient states she struck her anterior knee she has pain now in the lateral aspect of her foot as well as the second toe right sided. Patient states she doesnt have pain of the foot on the right side just toe. Patient states she did hit the right side of her chest, states hurts slightly with inspiration (minimally). Pt denies anticoagulation use or loss of consciousness. pt admits to feeling lightheaded initially after striking her head, denies syncope or lightheadedness before falling states she simply tripped and fell. Patient denies abdominal/flank injury. Denies back or neck pain, denies injury to UE. Patient has no additional complaints and appears well on arrival, ambulated independently to room #7 - Related Data Home Medications Medication Instructions Recorded Confirmed Omeprazole [PriLOSEC] 20 mg PO DAILY 11/01/15 05/26/20 Calcium/Vitamin D3(Unknown) 1 tab PO DAILY 05/26/20 05/26/20 Ginkgo Biloba(Unknown) 1 tab PO DAILY 05/26/20 05/26/20 Magnesium(Unknown) 1 tab PO DAILY 05/26/20 05/26/20 Multivitamins, Thera Liquid 5 ml PO DAILY 05/26/20 05/26/20 [Theragran Liquid (formulary)] Allergies Allergy/AdvReac Type Severity Reaction Status Date / Time No Known Allergies Allergy Verified 05/26/20 10:42 Review of Systems ROS Statement: Those systems with pertinent positive or pertinent negative responses have been documented in the HPI. ROS Other: All systems not noted in ROS Statement are negative. Past Medical History Past Medical History: GERD/Reflux Additional Past Medical History / Comment(s): Pneumonias (pt states this is her 3rd pneumonia this year), bilateral leg varicosities, H pylori. Pt states she has family (sister) with alpha-1 antitrypsin deficiency, patient's was within normal limits September 2017. History of Any Multi-Drug Resistant Organisms: None Reported Past Surgical History: Cholecystectomy Additional Past Surgical History / Comment(s): EGD, colonoscopy, R leg vein stripping x 2. Past Anesthesia/Blood Transfusion Reactions: No Reported Reaction, Motion Sickness Past Psychological History: No Psychological Hx Reported Smoking Status: Former smoker Past Alcohol Use History: None Reported Past Drug Use History: Marijuana - Past Family History Mother Family Medical History: Deep Vein Thrombosis (DVT) Additional Family Medical History / Comment(s): Mother had heart issues. She of a collapsed lung at the age of 89yrs. Father Family Medical History: CVA/TIA, Diabetes Mellitus, Liver Disease Additional Family Medical History / Comment(s): Father had liver issues- nonalcoholic liver cirrhosis. He of a blood infection at the age of 65yrs. Sister(s) Family Medical History: Liver Disease Additional Family Medical History / Comment(s): Sister with alpha-1 antitrypsin deficiency/liver transplant General Exam - General Exam Comments Initial Comments: General: The patient is awake and alert, in no distress Eye: +3 mm pupils are equal, round and reactive to light, extra-ocular movements are intact. No nystagmus. There is normal conjunctiva bilaterally. No signs of icterus. Ears, nose, mouth and throat: There are moist mucous membranes and no oral lesions. Neck: The neck is supple, there is no tenderness or JVD. Cardiovascular: There is a regular rate and rhythm. No murmur, rub or gallop is appreciated. Respiratory: Lungs are clear to auscultation, respirations are non-labored, breath sounds are equal. No wheezes, stridor, rales, or rhonchi. Gastrointestinal: Soft, non-distended, non-tender abdomen without masses or organomegaly noted. There is no rebound or guarding present. No CVA tenderness, flank brusiing or back bruising. Musculoskeletal: Normal inspection of the cervical thoracic and lumbar spine. There is no midline tenderness to palpation. No paraspinal tenderness no ecchymosis of the back. Full range of motion of the cervical spine without difficulty Normal ROM of the knees b/l some anterior pain with ROmof the right knee as well as wtih palpation, extensor mechanism intact. Strength 5/5 of the UE and Le b/l. Sensation intact of the UE and LE b/l. Radial and DP pulses equal bilaterally 2+. Neurological: A&O x 3. CN II-XII intact, There are no obvious motor or sensory deficits. Coordination appears grossly intact. Speech is normal. Skin: Skin is warm and dry and no rashes or lesions are noted. Varicosities of the lower extremity bilaterally. There is bruising of the second digit of right foot no forefoot or plantar aspect bruising. no forefoot pain to palpation, or pain over lisfranc region. pain over lateral aspect of left foot nor fore foot pain or brusiing over the forefoot/plantar aspect. No raccoon no Vogt sign. 3cm superficial irregular laceration of the right posterior parietal region of scalp, bleeding controlled- there is underlying hematoma. Psychiatric: Cooperative, appropriate mood & affect, normal judgment. Limitations: no limitations Course Vital Signs 05/26/20 10:13 Temperature 98.6 F Pulse Rate 53 L Respiratory 18 Rate Blood Pressure 133/82 O2 Sat by Pulse 98 Oximetry Medical Decision Making - Medical Decision Making XR (-). CT (-) for acute process. no suspicion given area of foot injruies for lisfranc. patient compartments soft compressible. right knee extensor mechanism intact, no laxity. Patient has no abdominal pain. cxr clear. no SOB. patient laceration repaired with stable after cleansing with iodoine. Patient tolerated well. Patient will be discharged with symptomatic treatment. patient agreeable to care plan and discharge. Disposition Clinical Impression: Scalp laceration, Fall, Toe pain, right, Left foot pain, Head injury Disposition: HOME SELF-CARE Condition: Good Instructions (If sedation given, give patient instructions): Fall Prevention (ED), R.I.C.E. Treatment (ED) Additional Instructions: Please use medication as discussed. Please follow-up with family doctor in the next 2 days of symptoms have not improved. Please return to emergency room if the symptoms increase or worsen or for any other concerns. Is patient prescribed a controlled substance at d/c from ED?: No Referrals: Pablo Adams DO [Primary Care Provider] - 1-2 days
--- NOTE | 2020-05-26 10:52 | CT ---
EXAMINATION TYPE: CT brain wo con DATE OF EXAM: 05/26/2020 COMPARISON: None HISTORY: Fall, hit back of head CT DLP: 1060.[address] of the brain was performed. The ventricles, basal cisterns and sulci overlying the cerebral convexities demonstrate mild enlargem ent. There is no evidence for intracranial hemorrhage or sulcal effacement. There is decreased attenuation about the periventricular white matter and deep white matter of both c erebral hemispheres, compatible with chronic small vessel ischemia. Differential diagnosis does inclu de demyelination. No mass effects are seen.No midline shift. Osseous calvarium is intact. Scalp hematoma posterior right parietal occipital region. If symptoms persist consider MRI. IMPRESSION: 1. Age related atrophic and chronic small vessel ischemic change without acute intracranial process s een at this time.
--- NOTE | 2020-05-26 11:13 | XR ---
EXAMINATION TYPE: XR chest 2V DATE OF EXAM: 05/26/2020 CLINICAL HISTORY: fall. TECHNIQUE: Frontal and lateral view of the chest. COMPARISON: 04/26/2019 chest radiograph FINDINGS: The cardiomediastinal silhouette is within normal limits for size. Pulmonary vasculature i s normal. There is no focal air space opacity, pleural effusion, or pneumothorax seen. No displaced o sseous fracture. IMPRESSION: No acute cardiopulmonary process.
--- NOTE | 2020-05-26 11:17 | XR ---
EXAMINATION TYPE: XR foot complete bilateral DATE OF EXAM: 05/26/2020 CLINICAL HISTORY: Fall. Lateral foot pain. Fall down stairs today, pain in second toe of right foot. TECHNIQUE: Frontal, lateral, and oblique images of the bilateral feet are obtained. COMPARISON: None FINDINGS: There is no acute fracture/dislocation evident in the bilateral feet. The joint spaces in the bilateral feet appear within normal limits. Decreased osseous mineralization. There is mild soft tissue swelling of the lateral midfoot on the left. IMPRESSION: 1. No acute fracture or dislocation of the bilateral feet. 2. Mild soft tissue swelling of the lateral mid left foot.
--- NOTE | 2020-05-26 11:19 | XR ---
EXAMINATION TYPE: XR knee complete RT DATE OF EXAM: 05/26/2020 CLINICAL HISTORY: Fall, anterior pain. Fall down stairs today. TECHNIQUE: Three views of the right knee are obtained. COMPARISON: None. FINDINGS: There is no acute fracture/dislocation evident in right knee. The tri-compartment joint s paces appear within normal limits. The overlying soft tissue appears unremarkable. IMPRESSION: No acute fracture or dislocation in the right knee.
[2020-05-26] MEDS ORDERED: DIPH,PERTUS(ACELL)TETVAC-LF 0.5 ML VIAL IM ONE (11:23)
[2020-05-26] MEDS ORDERED: ACET/COD 300 MG/30 MG STARTER PACK 6 TAB BTL PO STA (11:47)
--- NOTE | 2020-05-27 04:13 | CDI ---
Dear Dr. Edenilson Kramer, Please do addendum to ED report for missing repair note. Thank you, Dragan Gandhi Exhibits Coordinator If you have any questions, please contact [employer] at [phone] [facility]
== END 2020-05-26 11:59 | disposition home or self-care (01) ==
LOC: EC 10:05
DX: S01.01XA Laceration without foreign body of scalp, initial encounter (principal); S90.121A Contusion of right lesser toe(s) without damage to nail, initial encounter; I83.93 Asymptomatic varicose veins of bilateral lower extremities; K21.9 Gastro-esophageal reflux disease without esophagitis; Z79.899 Other long term (current) drug therapy; Z87.891 Personal history of nicotine dependence; W10.9XXA Fall (on) (from) unspecified stairs and steps, initial encounter
CPT/HCPCS: 12002; 70450; 71046; 99284

== ENCOUNTER → 2021-03-13 | Outpatient (CLI) | payer OTHER ==
--- NOTE | 2021-03-14 12:23 | MM ---
Reason for exam: screening (asymptomatic). Last mammogram was performed 1 year ago. History: Patient is postmenopausal. Physical Findings: A clinical breast exam by your physician is recommended on an annual basis and results should be correlated with mammographic findings. MG Screening Mammo w CAD Bilateral CC and MLO view(s) were taken. Prior study comparison: March 21, 2020, right breast MG diagnostic mammo RT w CAD. August 18, 2019, right breast MG 3d work up w/cad RT. The breast tissue is heterogeneously dense. This may lower the sensitivity of mammography. There are benign appearing round calcifications in the right breast. There is no discrete abnormality. ASSESSMENT: Benign, BI-RAD 2 RECOMMENDATION: Routine screening mammogram of both breasts in 1 year.
== END | disposition home or self-care (01) ==
LOC: RADMAMWWP 09:22
PROVIDERS: ATTEND Family Medicine
DX: Z12.31 Encounter for screening mammogram for malignant neoplasm of breast (principal); Z78.0 Asymptomatic menopausal state
CPT/HCPCS: 77067

== ENCOUNTER → 2021-06-11 | Outpatient (CLI) | payer OTHER ==
--- NOTE | 2021-06-11 10:48 | CTL ---
EXAMINATION TYPE: CT Low Dose Lung DATE OF EXAM ORDERED: 06/11/2021 HISTORY: 60-year-old female history of tobacco use, difficulty breathing. Z87.891 Personal History of tobacco use CT DLP: 132.[address] CTDI: 3.6 mGy Automated exposure control for dose reduction was used. SCREENING VISIT: Baseline COMPARISON: Prior CT chest 04/23/2019 TECHNIQUE: Low dose computed tomography scan was performed through the chest with coronal and sagitta l reconstructions. CT DIAGNOSTIC QUALITY: Satisfactory FINDINGS: Heart normal size without pericardial effusion. Mild LAD coronary artery calcifications are present. Mild ectasia ascending aorta 3.6 cm, unchanged. Conventional arch vessel branching anatomy. Scattered nonenlarged mediastinal lymph nodes measuring up to 5 mm. No thoracic lymphadenopathy by CT size criteria. There is some mural based nodularity along the left lateral wall of the trachea, suspected to relate to adherent mucus and secretions. This nodularity measures up to 6 mm. Mild diffuse bronchial wall thickening. Mild emphysematous change. Mild biapical pleural-parenchymal scarring. There is some subtle areas of irregular groundglass in a peribronchovascular distribution t hroughout the right greater than left upper lobes. More nodular appearance to some of these areas such as in the medial right upper lobe measuring 4 mm; And medial left upper lobe measuring 5 mm, axial image 59 and 36, respectively. 6 mm irregular nodularity right upper lobe, axial image 83. No consolidation or pleural effusion. Visualized upper abdomen shows no gross abnormal mobility. Bones: No osseous destructive process. IMPRESSION: 1. LungRADS 3, probably benign. Some scattered nodularity measuring up to 6 mm should be reassessed a t a 6 month follow-up. Additional mural based nodularity along the trachea measuring up to 6 mm proba rashmi adherent mucus and secretions. This should also be reassessed on the follow-up. 2. COPD with mild emphysema. Some mild groundglass changes in the right upper lobe suggest nonspecifi c infectious or inflammatory foci. Correlate with patient's symptoms. This should also be reassessed at follow-up. CT LUNG RAD AND CT CHEST RECOMMENDATION: Lung-Rad 3 Probably Benign: 6 month follow-up LDCT.
== END | disposition home or self-care (01) ==
LOC: RADCTMAIN 07:55
PROVIDERS: ATTEND Family Medicine
DX: Z12.2 Encounter for screening for malignant neoplasm of respiratory organs (principal); R91.8 Other nonspecific abnormal finding of lung field; J43.9 Emphysema, unspecified; Z87.891 Personal history of nicotine dependence
CPT/HCPCS: 71271

== ENCOUNTER → 2021-08-31 | Outpatient (CLI) | payer OTHER ==
--- NOTE | 2021-08-31 14:01 | XR ---
Thoracic and lumbar spine HISTORY: M 54.5 Frontal and lateral views of the thoracic spine on 4 images, 3 views of the lumbar spine submitted No comparisons Lumbar spine shows a levoscoliosis centered at L3. L3-4 show sclerosis, loss of disc height, vacuum p henomenon. Lumbar vertebral bodies show preserved height. Bone mineralization is reduced. There is mu ltilevel spondylosis. Loss of disc height also present L4-5 and L5-S1, L5-S1 shows vacuum phenomenon. Sclerosis present posterior elements of the lower lumbar spine. Surgical clips in the right upper qu adrant. IMPRESSION: Degenerative disc disease and facet arthropathy, scoliosis. Thoracic spine: There is a slight spinal curvature. Thoracic vertebral bodies show preserved height a nd alignment. Bone mineralization is reduced. There is multilevel spondylosis. Loss of disc height pr esent at intervertebral levels. Upper thoracic spine that most seen in its entirety in the lateral vi ew. IMPRESSION: Degenerative disc disease and spinal curvature.
== END | disposition home or self-care (01) ==
LOC: RADXRMAIN 10:31
PROVIDERS: ATTEND Physician Assistant
DX: M51.34 Other intervertebral disc degeneration, thoracic region (principal); M43.8X4 Other specified deforming dorsopathies, thoracic region; M51.37 Other intervertebral disc degeneration, lumbosacral region; M47.817 Spondylosis without myelopathy or radiculopathy, lumbosacral region; M41.87 Other forms of scoliosis, lumbosacral region
CPT/HCPCS: 72072; 72100

== ENCOUNTER → 2022-03-20 | Outpatient (CLI) | payer OTHER ==
--- NOTE | 2022-03-21 20:24 | MM ---
Reason for Exam: Screening (asymptomatic). Last screening mammogram was performed 12 month(s) ago. Patient History: Menarche at age 14. First Full-Term at age 25. Postmenopausal. Risk Values: Christie 5 year model risk: 1.5%. NCI Lifetime model risk: 7.2%. Prior Study Comparison: 10/07/2016 Bilateral Screening Mammogram, [facility]. 08/06/2019 Bilateral Screening Mammogram, [facility]. 08/18/2019 Right Diagnostic Mammogram, [facility]. 03/21/2020 Right Diagnostic Mammogram, [facility]. 03/13/2021 Bilateral Screening Mammogram, [facility]. Tissue Density: There are scattered fibroglandular densities. Findings: Analyzed By CAD. Possible subtle distortion anterior superior left MLO view. Additional areas of global and asymmetric densities bilaterally remain unchanged. Further evaluation recommended. Overall Assessment: Incomplete: need additional imaging evaluation, BI-RAD 0 Management: Special View Mammogram of the left breast. To include spot 3-D MLO, 3-D ML, and spot 3-D CC views. Targeted left breast ultrasound if any persisting abnormality. [facility] will attempt to contact patient to return for supplemental views and ultrasound if indicated. Electronically signed and approved by: Kiel Munoz M.D. Radiologist
== END | disposition home or self-care (01) ==
LOC: RADMAMWWP 09:47
PROVIDERS: ATTEND Family Medicine
DX: Z12.31 Encounter for screening mammogram for malignant neoplasm of breast (principal); Z78.0 Asymptomatic menopausal state
CPT/HCPCS: 77067

== ENCOUNTER → 2022-04-09 | Outpatient (CLI) | payer OTHER ==
--- NOTE | 2022-04-09 14:14 | MM ---
Reason for Exam: Additional evaluation requested from abnormal screening. Last screening mammogram was performed less than 1 month ago. Patient History: Menarche at age 14. First Full-Term at age 25. Postmenopausal. Risk Values: Christie 5 year model risk: 1.5%. NCI Lifetime model risk: 7.2%. Prior Study Comparison: 03/21/2020 Right Diagnostic Mammogram, [facility]. 03/13/2021 Bilateral Screening Mammogram, [facility]. 03/20/2022 Bilateral MG screening mammo w CAD, [facility]. Tissue Density: Left: There are scattered fibroglandular densities. Findings: Analyzed By CAD. No discrete abnormality or significant interval change. No suspicious mass or microcalcification, no architectural distortion. Overall Assessment: Benign, BI-RAD 2 Management: Screening Mammogram of both breasts in 1 year. A clinical breast exam by your physician is recommended on an annual basis and results should be correlated with mammographic findings. This exam should not preclude additional follow-up of suspicious palpable abnormalities. Results were given to the patient verbally at the time of exam. Electronically signed and approved by: Nick Carvalho M.D. Radiologis
== END | disposition home or self-care (01) ==
LOC: RADMAMWWP 09:59
PROVIDERS: ATTEND Family Medicine
DX: R92.8 Other abnormal and inconclusive findings on diagnostic imaging of breast (principal); Z78.0 Asymptomatic menopausal state
CPT/HCPCS: 77065

== ENCOUNTER → 2022-10-21 | Outpatient (CLI) | payer OTHER ==
--- NOTE | 2022-10-21 11:09 | XR ---
EXAMINATION TYPE: XR chest 2V DATE OF EXAM: 10/21/2022 COMPARISON: 05/26/2020 TECHNIQUE: PA and lateral views submitted. HISTORY: Cough FINDINGS: The lungs are clear and there is no pneumothorax, pleural effusion, or focal pneumonia. Heart size normal and no overt failure. Osseous structures demonstrate hypertrophic and degenerative changes of the spine. Hyperinflation correlate for COPD. IMPRESSION: 1. No acute process. Correlate for COPD.
== END | disposition home or self-care (01) ==
LOC: RADXRYALE 09:32
PROVIDERS: ATTEND Physician Assistant
DX: R05.9 Cough, unspecified (principal); F17.200 Nicotine dependence, unspecified, uncomplicated
CPT/HCPCS: 71046